=== PATIENT | female | born 1955 | race African-American/Black ===

== ENCOUNTER → 2016-03-24 | Outpatient (CLI) | payer BC ==
--- NOTE | 2016-03-24 18:22 | CT ---
EXAMINATION TYPE: CT urogram wo/w con DATE OF EXAM: 03/24/2016 5:40 PM COMPARISON: NONE HISTORY: Microscopic hematuria. Pelvic pain. CT DLP: mGycm Automated exposure control for dose reduction was used. Technique Multiple axial sections were obtained from the diaphragm to the floor of the pelvis with intravenous contrast. The IV contrast was Omnipaque 100 mL. There are additional noncontrast images of the abdome n. FINDINGS: Lung bases are clear. There is no pleural effusion. Liver spleen pancreas appear normal. Bile ducts a re not dilated. There are clips from cholecystectomy. There is no adrenal mass. There is a 3 mm calcification in the lower pole right kidney. There is no h ydronephrosis. There is normal contrast opacification of the kidneys. Ureters are not dilated. Bladde r distends smoothly. There is no sign of pelvic mass. There is no free fluid in the pelvis. I see no intestinal wall thickening. There are no dilated loops. Appendix is not seen. There is no si gn of appendicitis. The bony structures are intact. I see no bony destructive process. IMPRESSION: NONOBSTRUCTING SMALL RIGHT RENAL CALCULUS. NO EVIDENCE OF RENAL MASS OR OBSTRUCTION. OTHERWISE NEGATI VE CT SCAN OF THE ABDOMEN AND PELVIS.
== END | disposition home or self-care (01) ==
LOC: RADCTMAIN 16:36
PROVIDERS: ATTEND Urology
DX: N20.0 Calculus of kidney (principal)
CPT/HCPCS: 74178; 74400; Q9967

== ENCOUNTER → 2016-06-04 | Outpatient (CLI) | payer BC ==
--- NOTE | 2016-06-04 18:56 | XR ---
EXAMINATION TYPE: XR bone survey complete DATE OF EXAM: 06/04/2016 6:00 PM COMPARISON: NONE HISTORY: Monoclonal gammopathy. Anemia. Heart and mediastinum are within normal limits. Bony thorax appears intact. Calvarium is intact. I se e no compression fracture of the cervical thoracic and lumbar spine. There are spondylotic changes at C5-6 C6-7. The long bones are intact. There is no thoracic paraspinal mass. IMPRESSION: Ordinary degenerative changes in the cervical spine. No evidence of multiple myeloma.
== END ==
LOC: RADXRMAIN 17:22
PROVIDERS: ATTEND Internal Medicine Hematology & Oncology
DX: D47.2 Monoclonal gammopathy (principal); M47.812 Spondylosis without myelopathy or radiculopathy, cervical region
CPT/HCPCS: 77075

== ENCOUNTER → 2016-09-17 | Outpatient (CLI) | payer BC ==
--- NOTE | 2016-09-17 16:55 | US ---
EXAMINATION TYPE: US thyroid st tissue head/neck DATE OF EXAM: 09/17/2016 COMPARISON: 03/03/2016 CLINICAL HISTORY: 61-year-old female E04.1 MULTINODULAR GOITER. Thyroid nodules TECHNIQUE: Multiple sonographic images of the thyroid gland are obtained. FINDINGS: GLAND SIZE: Right Lobe: 4.5 x 1.3 x 1.5 cm Overall Parenchyma: homogenous Left Lobe: 3.8 x 1.0 x 1.6 cm Overall Parenchyma: homogeneous Isthmus Thickness: 0.2 cm NODULES RIGHT: # of nodules measured on right: 2 1. 0.9 X 0.4 x 0.6 cm colloid cyst at the lower pole. Prior size: 0.7 x 0.4 x 0.5 cm 2. 0.6 X 0.3 x 0.6 cm cyst at the lower pole. Prior size: no previous LEFT: # of nodules measured on left: 0 ISTHMUS: # of nodules measured in the isthmus: 0 Bilateral neck scanned, no evidence of lymphadenopathy. IMPRESSION: A couple subcentimeter colloid cysts on the right. One of these is new and one has enlarged from 7 mm now measuring 9 mm.
== END | disposition home or self-care (01) ==
LOC: RADUSWWP 15:44
PROVIDERS: ATTEND Family Medicine
DX: E04.2 Nontoxic multinodular goiter (principal)
CPT/HCPCS: 76536

== ENCOUNTER → 2017-03-15 | Outpatient (CLI) | payer BC ==
--- NOTE | 2017-03-17 07:08 | MM ---
Reason for exam: screening (asymptomatic). Last mammogram was performed 1 year ago. History: Patient is postmenopausal. Took estrogen for 25 years beginning at age 25. Physical Findings: A clinical breast exam by your physician is recommended on an annual basis and results should be correlated with mammographic findings. MG Screening Mammo w CAD Bilateral CC and MLO view(s) were taken. Prior study comparison: March 05, 2016, bilateral MG screening mammo w CAD. December 27, 2014, right breast MG 3d work up w/cad RT. The breast tissue is heterogeneously dense. This may lower the sensitivity of mammography. No significant changes when compared with prior studies. ASSESSMENT: Benign, BI-RAD 2 RECOMMENDATION: Routine screening mammogram of both breasts in 1 year.
== END | disposition home or self-care (01) ==
LOC: RADMAMWWP 15:37
PROVIDERS: ATTEND Obstetrics & Gynecology
DX: Z12.31 Encounter for screening mammogram for malignant neoplasm of breast (principal)
CPT/HCPCS: 77067

== ENCOUNTER → 2017-03-29 | Outpatient (CLI) | payer BC ==
--- NOTE | 2017-03-30 08:24 | CT ---
EXAMINATION TYPE: CT angio neck DATE OF EXAM: 03/29/2017 HISTORY: Carotid bruit. COMPARISON: Prior thyroid ultrasounds CT DLP: 245.40 mGycm. Automated Exposure Control for Dose Reduction was Utilized. TECHNIQUE: CTA scan of the neck is performed with IV Contrast, patient injected with 65 mL of Omnipa que 350, axial images are obtained, coronal and sagittal reformatted images are reviewed. Three-D rec onstructed images are created on an independent workstation and reviewed. FINDINGS: Carotid/Vascular Structures: A 4 mm focus of calcified plaque is seen within the right carotid bulb, no hemodynamically significant stenosis within the right common carotid artery, external carotid colin ry or internal carotid artery. Small amount of nonhemodynamically significant calcific plaque is also seen within the supraclinoid portion of the right internal carotid artery. There is no plaquing of the left common carotid artery, and external carotid artery, or internal jack tid artery within the neck. Small amount of nonhemodynamically significant plaquing is seen within th e supraclinoid portion of the left internal carotid artery. There is a normal anatomic branching pattern of the great vessels. The vertebral arteries are patent and codominant. Full [place] of [place] is not included on the images. Other: There are 2 hypoattenuating lesions within the right thyroid lobe the largest measuring 4 mm. This patient has a known thyroid goiter in prior ultrasound of 01/06/2017 demonstrating stable finding s from the prior of 09/17/2016. There is moderate mucosal thickening within the maxillary sinuses. Rem ainder the visualized paranasal sinuses and mastoid air cells are well aerated. Minimal emphysematous changes are seen within the lung apices. Osseous structures appear intact. Mild multilevel degenerat rome changes of the cervical spine are noted. IMPRESSION: 1. No evidence of hemodynamically significant stenosis within either carotid arterial system. Minimal nonhemodynamically significant stenosis is seen within the right carotid bulb and bilateral supracli noid portions of the internal carotid arteries. 2. Moderate maxillary paranasal sinus mucosal thickening.
== END | disposition home or self-care (01) ==
LOC: RADCTMAIN 16:59
PROVIDERS: ATTEND Thoracic Surgery (Cardiothoracic Vascular Surgery)
DX: I65.23 Occlusion and stenosis of bilateral carotid arteries (principal)
CPT/HCPCS: 70498; Q9967

== ENCOUNTER → 2017-04-01 | Outpatient (CLI) | payer BC ==
--- NOTE | 2017-04-02 10:43 | ECHOF ---
Referral Reason:I34.0 Nonrheumatic mitral (valve) insufficiency MEASUREMENTS -------- HEIGHT: 154.9 cm WEIGHT: 74.8 kg BP: RVIDd: 2.8 cm (< 3.3) IVSd: 1.2 cm (0.6 - 1.1) LVIDd: 3.8 cm (3.9 - 5.3) LVPWd: 1.5 cm (0.6 - 1.1) IVSs: 1.4 cm LVIDs: 2.8 cm LVPWs: 1.6 cm LAESV Index (A-L): 21.08 ml/m Ao Diam: 3.1 cm (2.0 - 3.7) AV Cusp: 1.6 cm (1.5 - 2.6) LA Diam: 2.9 cm (2.7 - 3.8) MV EXCURSION: 17.570 mm (> 18.000) MV EF SLOPE: 80 mm/s (70 - 150) EPSS: 0.3 cm MV E Wilmer: 0.64 m/s MV DecT: 188 ms MV A Wilmer: 0.71 m/s MV E/A Ratio: 0.90 AR PHT: 403 ms RAP: 5.00 mmHg RVSP: 32.70 mmHg FINDINGS -------- Sinus rhythm. This was a technically adequate study. The left ventricular size is normal. There is mild concentric left ventricular hypertrophy. Overa ll left ventricular systolic function is normal with, an EF between 55 - 60 %. The right ventricle is mildly enlarged. Normal LA size by volume 22+/-6 ml/m2. RA appears enlarged. Aortic valve is trileaflet and is mildly thickened. There is [id number] aortic regurgitation. There is no evidence of aortic stenosis. There is trace to mild mitral regurgitation. There is moderate calcification of the anterior mitral valve leaflet. Mild tricuspid regurgitation present. Right ventricular systolic pressure is normal at < 35 mmHg. There is no evidence of pulmonary hypertension. Moderate pulmonic regurgitation. The aortic root size is normal. Normal inferior vena cava with normal inspiratory collapse consistent with estimated right atrial pre ssure of 5 mmHg. The pericardium is normal. There is no pericardial effusion. CONCLUSIONS -------- 1. Sinus rhythm. 2. This was a technically adequate study. 3. The left ventricular size is normal. 4. There is mild concentric left ventricular hypertrophy. 5. Overall left ventricular systolic function is normal with, an EF between 55 - 60 %. 6. The right ventricle is mildly enlarged. 7. Normal LA size by volume 22+/-6 ml/m2. 8. RA appears enlarged. 9. Aortic valve is trileaflet and is mildly thickened. 10. There is [id number] aortic regurgitation. 11. There is trace to mild mitral regurgitation. 12. Mild tricuspid regurgitation present. 13. Right ventricular systolic pressure is normal at < 35 mmHg. 14. There is no evidence of pulmonary hypertension. 15. Moderate pulmonic regurgitation. 16. The aortic root size is normal. 17. There is no pericardial effusion. LOAN WORKOUT OFFICER: Oseas Winkler RDCS
== END | disposition home or self-care (01) ==
LOC: RADECHMAIN 16:32
PROVIDERS: ATTEND Family Medicine
DX: I08.2 Rheumatic disorders of both aortic and tricuspid valves (principal)
CPT/HCPCS: 93306

== ENCOUNTER → 2017-04-06 | Outpatient (CLI) | payer BC ==
--- NOTE | 2017-04-06 17:50 | CT ---
EXAMINATION TYPE: CT angio chest DATE OF EXAM: 04/06/2017 5:34 PM COMPARISON: NONE HISTORY: Carotid bruit CT DLP: 302.9 mGycm Automated exposure control for dose reduction was used. CONTRAST: CTA scan of the thorax is performed with IV Contrast, patient injected with 100ml mL of Omnipaque 350 , pulmonary embolism protocol. There are 3-D post processed images.. FINDINGS: There is a 1 cm calcified granuloma in the subpleural lateral right lung. There is no evidence of a p ulmonary mass. Lungs are clear of consolidation. There is no pericardial effusion. Thoracic aorta sabina ears normal. There is no evidence of aneurysm or dissection. I see no filling defects in the pulmonar y arteries. There is no mediastinal adenopathy. There are no hilar masses. Heart appears enlarged. Th ere is spurring in the thoracic spine. IMPRESSION: CARDIOMEGALY. NO EVIDENCE OF PULMONARY EMBOLISM.
== END | disposition home or self-care (01) ==
LOC: RADCTMAIN 16:58
PROVIDERS: ATTEND Thoracic Surgery (Cardiothoracic Vascular Surgery)
DX: I51.7 Cardiomegaly (principal)
CPT/HCPCS: 71275; Q9967

== ENCOUNTER → 2017-07-29 | Outpatient (CLI) | payer OTHER ==
--- NOTE | 2017-07-29 13:43 | CT ---
EXAMINATION TYPE: CT brain candy gonzalez DATE OF EXAM: 07/29/2017 COMPARISON: NONE HISTORY: Fall, neck pain and AGGARWAL CT DLP: [address] of the brain was performed. The ventricles, basal cisterns and sulci overlying the cerebral convexities demonstrate mild enlargem ent. There is no evidence for intracranial hemorrhage or sulcal effacement. There is decreased attenuatio n about the periventricular white matter and deep white matter of both cerebral hemispheres, compatib le with chronic small vessel ischemia. No mass effects are seen. If symptoms persist consider MRI. Osseous calvarium is intact. IMPRESSION: 1. Age related atrophic and chronic small vessel ischemic change without acute intracranial process seen at this time. CT Cervical Spine: Unenhanced CT of the cervical spine was performed with bone and soft tissue window settings submitted . Coronal and sagittal reconstruction is obtained. There is normal alignment and prevertebral soft tissues. No evidence for acute cervical fracture . Scattered degenerative disc disease and spondylosis. Biapical scarring. IMPRESSION: 1. No evidence for acute fracture or subluxation of the cervical spine.
== END | disposition home or self-care (01) ==
LOC: RADCTMAIN 13:02
PROVIDERS: ATTEND Emergency Medicine
DX: G31.1 Senile degeneration of brain, not elsewhere classified (principal); I67.82 Cerebral ischemia; M54.2 Cervicalgia
CPT/HCPCS: 70450; 72125

== ENCOUNTER → 2017-08-17 | Outpatient (CLI) | payer BC ==
--- NOTE | 2017-08-17 17:39 | US ---
EXAMINATION TYPE: US thyroid st tissue head/neck DATE OF EXAM: 08/17/2017 COMPARISON: 2017 CLINICAL HISTORY: E04.1 Nontoxic single thyroid nodule. GLAND SIZE: Right Lobe: 3.6 x 1.1 x 1.4 cm Overall Parenchyma: heterogenous Left Lobe: 3.5 x 0.9 x 1.4 cm Overall Parenchyma: homogeneous Isthmus Thickness: 0.2 cm NODULES RIGHT: # of nodules measured on right: 2 1. 0.6 X 0.6 x 0.4 cm cystic nodule at the lower pole with well-defined margins; present with micro calcifications. This nodule is wider than tall and shows no intranodular vascularity. Prior size: 0.8 x 0.6 x 0.4 cm 2. 0.5 X 0.4 x 0.2 cm micr calcifications cystic nodule at the lower pole with well-defined margins; . This nodule is wider than tall and shows no intranodular vascularity. Prior size: 0.5 x 0.4 x 0.3 cm LEFT: # of nodules measured on left: 0 ISTHMUS: # of nodules measured in the isthmus: 0 Bilateral neck scanned, no evidence of lymphadenopathy. IMPRESSION: Thyroid gland appears stable compared to 01/06/2017. No dominant thyroid mass.
== END | disposition home or self-care (01) ==
LOC: RADUSWWP 17:03
PROVIDERS: ATTEND Family Medicine
DX: E04.1 Nontoxic single thyroid nodule (principal)
CPT/HCPCS: 76536

== ENCOUNTER → 2018-04-08 | Outpatient (CLI) | payer BC ==
--- NOTE | 2018-04-11 11:55 | MM ---
Reason for exam: screening (asymptomatic). Last mammogram was performed 1 year and 1 month ago. History: Patient is postmenopausal. Took estrogen for 25 years beginning at age 25. Physical Findings: A clinical breast exam by your physician is recommended on an annual basis and results should be correlated with mammographic findings. MG Screening Mammo w CAD Bilateral CC and MLO view(s) were taken. Prior study comparison: March 15, 2017, bilateral MG screening mammo w CAD. March 05, 2016, bilateral MG screening mammo w CAD. The breast tissue is heterogeneously dense. This may lower the sensitivity of mammography. No suspicious abnormality. No significant changes when compared with prior studies. ASSESSMENT: Negative, BI-RAD 1 RECOMMENDATION: Routine screening mammogram of both breasts in 1 year.
== END ==
LOC: RADMAMWWP 16:38
PROVIDERS: ATTEND Obstetrics & Gynecology
DX: Z12.31 Encounter for screening mammogram for malignant neoplasm of breast (principal)
CPT/HCPCS: 77067

== ENCOUNTER → 2018-07-29 | Outpatient (CLI) | payer BC ==
--- NOTE | 2018-07-30 13:20 | US ---
EXAMINATION TYPE: US thyroid st tissue head/neck DATE OF EXAM: 07/29/2018 COMPARISON: US 2018 CLINICAL HISTORY: E04.2 nontoxic multinodular goiter. Follow up thyroid nodules GLAND SIZE: Right Lobe: 4.4 x 1.1 x 1.6 cm Overall Parenchyma: homogenous Left Lobe: 3.8 x 1.0 x 1.4 cm Overall Parenchyma: homogeneous Isthmus Thickness: 0.2 cm NODULES RIGHT: # of nodules measured on right: 2 1. 0.6 X 0.3 x 0.6 cm hypoechoic cystic nodule at the lower pole with well-defined margins. This no dule is wider than tall and shows no intranodular vascularity. Prior size: 0.6 x 0.6 x 0.4 cm 2. 0.7 X 0.4 x 0.7 cm hypoechoic cystic nodule at the lower pole with well-defined margins. This nod ule is wider than tall and shows no intranodular vascularity. Prior size: 0.5 x 0.4 x 0.2 cm LEFT: # of nodules measured on left: 0 ISTHMUS: # of nodules measured in the isthmus: 0 Bilateral neck scanned, no evidence of lymphadenopathy. IMPRESSION: Essentially stable exam. Subcentimeter thyroid nodules some of which may represent colloid cysts in t he right lobe.
--- NOTE | 2018-07-30 13:21 | US ---
EXAMINATION TYPE: US carotid duplex BILAT DATE OF EXAM: 07/29/2018 COMPARISON: US carotid 2016 CLINICAL HISTORY: R09.89 other specified symptoms and signs. Bruit EXAM MEASUREMENTS: RIGHT: Peak Systolic Velocity (PSV) cm/sec ----- Right CCA: 52.2 ----- Right ICA: 102.6 ----- Right ECA: 82.2 ICA/CCA ratio: 2.0 RIGHT: End Diastole cm/sec ----- Right CCA: 10.2 ----- Right ICA: 30.9 ----- Right ECA: 8.7 LEFT: Peak Systolic Velocity (PSV) cm/sec ----- Left CCA: 67.7 ----- Left ICA: 58.1 ----- Left ECA: 43.9 ICA/CCA ratio: 0.9 LEFT: End Diastole cm/sec ----- Left CCA: 17.1 ----- Left ICA: 18.1 ----- Left ECA: 5.8 VERTEBRALS (direction of flow): Right Vertebral: Antegrade Left Vertebral: Antegrade Rhythm: Normal Bilateral intimal thickening, no elevated velocities Grayscale, color Doppler, spectral Doppler imaging performed. Waveform analysis does not show signifi cant stenosis of the proximal internal carotid arteries. IMPRESSION: No hemodynamic significant stenosis of the proximal internal carotid arteries bilaterall y by Doppler criteria, an indirect measurement of carotid stenosis
== END | disposition home or self-care (01) ==
LOC: RADUSWWP 16:26
PROVIDERS: ATTEND Family Medicine
DX: E04.2 Nontoxic multinodular goiter (principal); R09.89 Other specified symptoms and signs involving the circulatory and respiratory systems
CPT/HCPCS: 76536; 93880

== ENCOUNTER → 2020-02-13 | Outpatient (CLI) | payer MEDICARE ==
--- NOTE | 2020-02-13 16:39 | BD ---
EXAMINATION TYPE: Axial Bone Density DATE OF EXAM: 02/13/2020 COMPARISON: NONE CLINICAL HISTORY: Height: 5 FT 1 1/2 IN Weight: 171 FRAX RISK QUESTIONS: Alcohol (3 or more units per day): NO Family History (Parent hip fracture): NO Glucocorticoids (More than 3mos): NO (Ex: prednisone, prednisolone, methylprednisolone, dexamethasone, and hydrocortisone). History of Fracture in Adulthood: YES Secondary Osteoporosis: 1. Type 1 Diabetes: NO 2. Hyperthyroidism: NO 3. Menopause before 45: YES 4. Malnutrition: NO 5. Chronic liver disease: NO Rheumatoid Arthritis: NO Current Tobacco Use: NO RISK FACTORS HISTORY OF: Family History of Osteoporosis: NO Active: YES Diet low in dairy products/other sources of calcium: NO Postmenopausal woman: TOTAL HYST AGE 34 Take estrogen and/or progesterone medications: TOOK FOR AWHILE NOT SURE WHEN OR HOW LONG Lost more than 2 inches in height since high school: NO MEDICATIONS: Additional Medications: LOSARTIN, TOPOROL ,VITAMINS, CALCIUM Additional History: EXAM MEASUREMENTS: Bone mineral densitometry was performed using the [employer]. Bone mineral density as measured about the Lumbar spine is: ----- L1-L4(G/cm2): 1.054 T Score Values are as follows: ----- L2: -2.1 ----- L3: -1.6 ----- L4: -0.3 ----- L1-L4: -1.1 Bone mineral density has: INCREASED 0.2 % since study of: 2017 Bone mineral density about the R hip (g/cm2): 0.942 Bone mineral density about the L hip (g/cm2): 0.930 T Score values are as follows: -----R Neck: -0.7 -----L Neck: -0.8 -----R Total: -0.3 -----L Total: 0.0 Bone mineral density has: DECREASED -5.7 % since study of: 2017 IMPRESSION: Osteopenia (T Score between -2.5 and -1). There is slightly increased risk of fracture and the patient may be considered for treatment. Re-Screen 2-5 years. NOTE: T-SCORE=SD OF THE YOUNG ADULT MEAN.
== END | disposition home or self-care (01) ==
LOC: RADBDWWP 09:24
PROVIDERS: ATTEND Obstetrics & Gynecology
DX: M85.80 Other specified disorders of bone density and structure, unspecified site (principal)
CPT/HCPCS: 77080

== ENCOUNTER → 2020-02-14 | Outpatient (CLI) | payer MEDICARE ==
--- NOTE | 2020-02-19 11:00 | MM ---
Reason for exam: screening (asymptomatic). Last mammogram was performed 1 year and 10 months ago. History: Patient is postmenopausal. Took estrogen for 25 years beginning at age 25. Physical Findings: A clinical breast exam by your physician is recommended on an annual basis and results should be correlated with mammographic findings. MG 3D Screening Mammo W/Cad Bilateral CC and MLO view(s) were taken. Prior study comparison: April 08, 2018, bilateral MG screening mammo w CAD. March 15, 2017, bilateral MG screening mammo w CAD. The breast tissue is heterogeneously dense. This may lower the sensitivity of mammography. No significant changes when compared with prior studies. ASSESSMENT: Benign, BI-RAD 2 RECOMMENDATION: Routine screening mammogram of both breasts in 1 year.
== END | disposition home or self-care (01) ==
LOC: RADMAMWWP 14:40
PROVIDERS: ATTEND Obstetrics & Gynecology
DX: Z12.31 Encounter for screening mammogram for malignant neoplasm of breast (principal)
CPT/HCPCS: 77063; 77067

== ENCOUNTER → 2020-02-14 | Outpatient (CLI) | payer MEDICARE ==
--- NOTE | 2020-02-14 15:35 | US ---
EXAMINATION TYPE: US thyroid st tissue head/neck DATE OF EXAM: 02/14/2020 COMPARISON: NONE CLINICAL HISTORY: E04.2 nontoxic multinodular goiter. follow up exam GLAND SIZE: Right Lobe: 4.4 x 1.3 x 1.4 cm Overall Parenchyma: homogenous Left Lobe: 3.7 x 1.5 x 1.1 cm Overall Parenchyma: homogeneous Isthmus Thickness: 0.2 cm NODULES RIGHT: # of nodules measured on right: 1 1. 0.6 X 0.3 x 0.4 cm cystic or almost completely cystic, anechoic nodule, which is wider than tall , with smooth margins, with echogenic foci. Prior size: 0.6 x 0.3 x 0.6 cm LEFT: # of nodules measured on left: 0 ISTHMUS: # of nodules measured in the isthmus: 0 Bilateral neck scanned, no evidence of lymphadenopathy. IMPRESSION: Benign 2017 ACR TI-RADS LEVEL: 1 *Highest TI-RADS level nodule reported
== END | disposition home or self-care (01) ==
LOC: RADUSWWP 14:36
PROVIDERS: ATTEND Family Medicine
DX: E04.2 Nontoxic multinodular goiter (principal)
CPT/HCPCS: 76536

== ENCOUNTER → 2020-08-14 | Outpatient (CLI) | payer MEDICARE ==
--- NOTE | 2020-08-15 22:32 | MR ---
EXAMINATION TYPE: MR lumbar spine wo con DATE OF EXAM: 08/14/2020 COMPARISON: None HISTORY: LBP, BLE radiculopathy x 1 year. CONTRAST: 0 mL intravenous Gadavist. TECHNIQUE: Multiplanar, multisequence images of the lumbar spine were acquired. FINDINGS: L5-S1: Broad-based disc bulge is present. No significant thecal sac compression is evident. No contac t with the exiting nerve roots is evident. Neural foramen are patent No spinal canal stenosis. No f oraminal stenosis. L4-L5: Symmetrical disc bulge is present with anterior thecal sac flattening. No focal disc herniatio n is evident. No spinal canal stenosis. Facet hypertrophy is present with mild posterior lateral the maritza compression. Ligamentum flavum laxity is present. Mild bilateral foraminal narrowing is present. L3-L4: Mild disc bulge has anterior thecal sac contact. Facet hypertrophy of ligamentum flavum laxity is posterior lateral thecal sac compression. No spinal canal stenosis or neural foraminal stenosis i s present L2-L3: No significant disc bulge or disc herniation. No spinal canal stenosis. No foraminal stenosi s. Mild facet hypertrophy is present. L1-L2: No significant disc bulge or disc herniation. No spinal canal stenosis. No foraminal stenosi s. T12-L1: No significant disc bulge or disc herniation. No spinal canal stenosis. No foraminal stenos is. IMPRESSION: 1. Facet hypertrophy. Some ligamentum flavum laxity is also present at L4-5 with some mild posterior lateral thecal sac compression. No stenosis is evident. Mild facet hypertrophy is present elsewhere w ithin the lower lumbar spine. 2. Disc bulging L3-4 through L5-S1 with mild thecal sac flattening or contact.
== END | disposition home or self-care (01) ==
LOC: RADMRIMAIN 16:35
PROVIDERS: ATTEND Family Medicine
DX: M51.17 Intervertebral disc disorders with radiculopathy, lumbosacral region (principal); M47.26 Other spondylosis with radiculopathy, lumbar region
CPT/HCPCS: 72148

== ENCOUNTER → 2021-05-20 | Outpatient (CLI) | payer MEDICARE ==
--- NOTE | 2021-05-21 13:46 | MM ---
Reason for exam: screening (asymptomatic). Last mammogram was performed 1 year and 3 months ago. History: Patient is postmenopausal. Family history of breast cancer in sister. Took estrogen for 25 years beginning at age 25. Physical Findings: A clinical breast exam by your physician is recommended on an annual basis and results should be correlated with mammographic findings. MG 3D Screening Mammo W/Cad Bilateral CC and MLO view(s) were taken. Prior study comparison: February 14, 2020, bilateral MG 3d screening mammo w/cad. April 08, 2018, bilateral MG screening mammo w CAD. The breast tissue is heterogeneously dense. This may lower the sensitivity of mammography. There is no discrete abnormality. No significant changes when compared with prior studies. ASSESSMENT: Negative, BI-RAD 1 RECOMMENDATION: Routine screening mammogram of both breasts in 1 year.
== END | disposition home or self-care (01) ==
LOC: RADMAMWWP 15:23
PROVIDERS: ATTEND Obstetrics & Gynecology
DX: Z12.31 Encounter for screening mammogram for malignant neoplasm of breast (principal); Z78.0 Asymptomatic menopausal state; Z80.3 Family history of malignant neoplasm of breast
CPT/HCPCS: 77063; 77067

== ENCOUNTER 2022-04-01 10:01 | Day surgery (SDC) | payer MEDICARE ==
[2022-03-31 10:19] VITALS: BMI 32.1
[2022-04-01] MEDS ORDERED: ONDANSETRON 4 MG/2 ML VIAL IVP PRN (10:54)
[2022-04-01] MEDS ORDERED: LIDOCAINE 1% (10MG/ML) FOR IV START INTRADERMA PRN (10:54)
[2022-04-01] MEDS ORDERED: LACTATED RINGERS 1,000 ML IV SCH ×2 (10:54)
[2022-04-01 11:14] VITALS: RESP 16; TEMP 97.1
[2022-04-01 11:28] LABS: Glucose,Whole Blood 103 mg/dL (70-110)
[2022-04-01] MEDS ORDERED: LIDOCAINE 2% INJ 20 MG/ML (2 ML VIAL) ONE (12:29)
[2022-04-01] MEDS ORDERED: PROPOFOL 10 MG/ML 20 ML VIAL IV ONE (12:29)
--- NOTE | 2022-04-01 12:42 | P.PCN ---
Date of Procedure: 04/01/22 Procedure(s) Performed: BRIEF HISTORY: Patient is a 66-year-old [place] -[place] female scheduled for an elective colonoscopy as a part of pain for colon cancer. Her last colonoscopy was 10 years ago and was normal. PROCEDURE PERFORMED: Colonoscopy. PREOPERATIVE DIAGNOSIS: Screening for colon cancer. IV sedation per Anesthesia. PROCEDURE: After informed consent was obtained, the patient, was brought into the endoscopy unit. IV sedation was administered by Anesthesia under continuous monitoring. Digital rectal examination was normal. Initially the Olympus CF-160 flexible video colonoscope was then inserted in the rectum, gradually advanced into the cecum without any difficulty. Careful examination was performed as the scope was gradually being withdrawn. Ileocecal valve and the appendiceal orifice were visualized and appeared normal. Prep was excellent. Mucosa of the cecum, ascending colon, transverse colon, descending colon, sigmoid colon, and rectum appeared normal. Retroflexion was performed in the rectum and no lesions were seen. The patient tolerated the procedure well. IMPRESSION: Normal-appearing colon from rectum to cecum with no evidence of colorectal neoplasia. RECOMMENDATIONS: Findings of this examination were discussed with the patient as well as her family. She was advised to have a repeat screening colonoscopy in 10 years..
[2022-04-01 13:02] VITALS: BP 146/80; PULSE 80
== END 2022-04-01 13:33 | disposition home or self-care (01) ==
LOC: ORWHC2ENDO 10:01
PROVIDERS: ATTEND Internal Medicine Gastroenterology
DX: Z12.11 Encounter for screening for malignant neoplasm of colon (principal); I10 Essential (primary) hypertension; E11.9 Type 2 diabetes mellitus without complications; Z88.2 Allergy status to sulfonamides; Z79.84 Long term (current) use of oral hypoglycemic drugs; Z79.899 Other long term (current) drug therapy
CPT/HCPCS: J2704; J2001; G0121; 45378

== ENCOUNTER → 2022-06-24 | Outpatient (CLI) | payer MEDICARE ==
--- NOTE | 2022-06-24 13:03 | MM ---
Reason for Exam: Screening (asymptomatic). Last mammogram was performed 1 year(s) and 1 month(s) ago. Patient History: Menarche at age 11. First Full-Term at age 22. Left ovary removed at age 24. Right ovary removed at age 24. Hysterectomy at age 24. Postmenopausal. Estrogen for 25 years from age 25 until age 54. Sister had breast cancer. Risk Values: Ju 5 year model risk: 3.3%. NCI Lifetime model risk: 10.4%. Prior Study Comparison: 04/08/2018 Bilateral Screening Mammogram, [facility]. 02/14/2020 Bilateral Screening Mammogram, [facility]. 05/20/2021 Bilateral Screening Mammogram, [facility]. Tissue Density: The breast tissue is heterogeneously dense. This may lower the sensitivity of mammography. Findings: Analyzed By CAD. There is no suspicious group of microcalcifications or new suspicious mass in either breast. Overall Assessment: Negative, BI-RAD 1 Management: Screening Mammogram of both breasts in 1 year. A clinical breast exam by your physician is recommended on an annual basis and results should be correlated with mammographic findings. Electronically signed and approved by: Magno Olson D.O.
--- NOTE | 2022-06-24 14:27 | BD ---
EXAMINATION TYPE: Axial Bone Density DATE OF EXAM: 06/24/2022 CLINICAL HISTORY: 67 years old Female. ICD-10 CODE: M85.88 DISORDER OF BONE Height: 5 ft 1 in Weight: 173 FRAX RISK QUESTIONS: Alcohol (3 or more units per day): no Family History (Parent hip fracture): no Glucocorticoids (More than 3mos): no (Ex: prednisone, prednisolone, methylprednisolone, dexamethasone, and hydrocortisone). History of Fracture in Adulthood: yes Secondary Osteoporosis: 1. Type 1 Diabetes: no 2. Hyperthyroidism: nodules 3. Menopause before 45: yes 4. Malnutrition: no 5. Chronic liver disease: no Rheumatoid Arthritis: no Current Tobacco Use: no RISK FACTORS HISTORY OF: Surgery to Spine/Hip(right/left)/Wrist (right/left): no Family History of Osteoporosis: no Active: yes Diet low in dairy products/other sources of calcium: no Postmenopausal woman: yes Take estrogen and/or progesterone medications: none now Lost more than 2 inches in height since high school: no Frequent falls: no Poor Health: good Hyperparathyroidism: no Adrenal Insufficiency: no MEDICATIONS: Additional Medications: metoprolol, losartan Additional History: EXAM MEASUREMENTS: Bone mineral densitometry was performed using the [employer] System. Bone mineral density as measured about the Lumbar spine is: ----- L1-L4(G/cm2): 1.051 T Score Values are as follows: ----- L1: -1.4 ----- L2: -1.5 ----- L3: -1.5 ----- L4: -0.4 ----- L1-L4: -1.1 Z Score Values are as follows: ----- L1: -0.9 ----- L2: -1.0 ----- L3: -1.0 ----- L4: 0.1 ----- L1-L4: -0.6 Bone mineral density has: decreased -0.3 % since study of: 2019 Bone mineral density about the R hip (g/cm2): 0.941 Bone mineral density about the L hip (g/cm2): 0.926 T Score values are as follows: -----R Neck: -0.7 -----L Neck: -0.8 -----R Total: -0.2 -----L Total: 0.1 Z Score values are as follows: -----R Neck: -0.3 -----L Neck: -0.4 -----R Total: -0.1 -----L Total: 0.2 Bone mineral density has: increased 1.0 % since study of: 2019 FRAX%s: The graph provided illustrates a 5.7 % chance for a major osteoporotic fx and a 0.4 % chance for the hips probability for fx in 10 years time. IMPRESSION: Normal (Values between +1 and -1 indicate normal bone mass). Consider repeating this study in 5 year s or sooner if there is some new clinical indication. NOTE: T-SCORE=SD OF THE YOUNG ADULT MEAN.
== END ==
LOC: RADMAMWWP 11:58
PROVIDERS: ATTEND Obstetrics & Gynecology
DX: Z12.31 Encounter for screening mammogram for malignant neoplasm of breast (principal); M85.88 Other specified disorders of bone density and structure, other site; Z78.0 Asymptomatic menopausal state; Z80.3 Family history of malignant neoplasm of breast
CPT/HCPCS: 77063; 77067; 77080

== ENCOUNTER → 2023-09-22 | Outpatient (CLI) | payer MEDICARE ==
--- NOTE | 2023-09-26 14:42 | MM ---
Reason for Exam: Screening (asymptomatic). Last mammogram was performed 1 year(s) and 3 month(s) ago. Patient History: Menarche at age 11. First Full-Term at age 22. Left ovary removed at age 24. Right ovary removed at age 24. Hysterectomy at age 24. Postmenopausal. Estrogen for 25 years from age 25 until age 54. Sister had breast cancer. Risk Values: Ju 5 year model risk: 2.8%. NCI Lifetime model risk: 8.0%. Prior Study Comparison: 02/14/2020 Bilateral Screening Mammogram, [facility]. 05/20/2021 Bilateral Screening Mammogram, [facility]. 06/24/2022 Bilateral MG 3D screening mammo w/cad, [facility]. Tissue Density: The breasts are heterogeneously dense, which may obscure small masses. Findings: Analyzed By CAD. The pattern is symmetrical. Pattern appears stable. No significant interval changes No suspicious groups of microcalcifications, spiculated or lobular masses, architectural distortion or other secondary signs of malignancy are mammographically apparent. Overall Assessment: Benign, BI-RAD 2 Management: Screening Mammogram of both breasts in 1 year. A negative mammogram report should not preclude additional follow up of suspicious palpable abnormalities. Patient should continue monthly self breast exam. A clinical breast exam by your physician is recommended on an annual basis and results should be correlated with mammographic findings. Note on Ju scores and lifetime risk: 1. A Ju score greater than 3% is considered moderate risk. If this is the case, consider specialist referral to assess eligibility for a risk reducing agent. 2. If overall lifetime risk for the development of breast cancer is 20% or higher, the patient may qualify for future screening with alternating mammogram and breast MRI. Electronically signed and approved by: Constantino Campbell D.O. Radiologis
== END | disposition home or self-care (01) ==
LOC: RADMAMWWP 11:03
PROVIDERS: ATTEND Obstetrics & Gynecology
DX: Z12.31 Encounter for screening mammogram for malignant neoplasm of breast (principal); R92.333 Mammographic heterogeneous density, bilateral breasts; Z78.0 Asymptomatic menopausal state; Z80.3 Family history of malignant neoplasm of breast
CPT/HCPCS: 77063; 77067

== ENCOUNTER → 2024-03-09 | Outpatient (CLI) | payer MEDICARE ==
--- NOTE | 2024-03-09 10:15 | MR ---
EXAMINATION TYPE: MR lumbar spine wo con DATE OF EXAM: 03/09/2024 9:09 AM COMPARISON: 08/14/2020 CLINICAL INDICATION: Female, 68 years old with history of M54.16 Radiculopathy; lumbar region, Lower back pain, left side, LLE radiculopathy. TECHNIQUE: Multiplanar, multisequence images of the lumbar spine were acquired without IV contrast. FINDINGS: Vertebral body heights are preserved. There is hypertrophic facet arthropathy mid to lower lumbar spine with degenerative trace grade 1 ant erolisthesis L3-L4 and L4-L5. Remaining alignment is maintained. Mild degenerative disc disease mid to lower lumbar spine with desiccated and bulging discs. Anterior endplate spondylosis lower thoracic spine. Some scattered Modic type II fatty endplate changes presen t. There is some edematous Modic type I endplate change toward the left at L5-S1. Conus medullaris is normal. Scattered red marrow is present without suspicious bone marrow placement. Epidural lipomatosis at the L5-S1 level and below with secondary trefoil configuration to the thecal sac. Bulging disks impressing on the ventral thecal sac T10-T11, T11-T12, L3-L4, L4-L5, and L5-S1 without large focal disc herniation or significant spinal canal stenosis. On the right, changes result in mild neuroforaminal narrowing L3-S1 levels. On the left, changes result in mild neural foraminal narrowing L4-S1 levels. Disc material at L5-S1 closely approaches and may abut the bilateral traversing S1 nerve roots. Changes relatively similar compared to 08/14/2020. IMPRESSION: 1. Relatively similar exam. Hypertrophic facet arthropathy mid to lower lumbar spine with degenerativ e trace grade 1 anterolisthesis L3-L4 and L4-L5. 2. Mild degenerative disc disease mid to lower lumbar spine with desiccated and bulging discs. Disc m aterial at L5-S1 closely approaches and may abut the bilateral traversing S1 nerve roots. 3. Changes result in variable mild neuroforaminal narrowing L3-S1 levels. 4. Additional epidural lipomatosis opposite the L5-S1 level and below causing a trefoil configuration to the thecal sac. [facility], , 03/09/2024 10:12 AM
== END | disposition home or self-care (01) ==
LOC: RADMRIMAIN 08:28
PROVIDERS: ATTEND Family Medicine
DX: M48.061 Spinal stenosis, lumbar region without neurogenic claudication (principal); M51.16 Intervertebral disc disorders with radiculopathy, lumbar region; E88.2 Lipomatosis, not elsewhere classified; M47.27 Other spondylosis with radiculopathy, lumbosacral region; M43.16 Spondylolisthesis, lumbar region
CPT/HCPCS: 72148

== ENCOUNTER 2024-05-13 12:45 | Emergency (ER) | payer MEDICARE ==
[2024-05-13 12:50] VITALS: TEMP 97.9
--- NOTE | 2024-05-13 13:14 | ED ---
General Adult HPI - General Chief complaint: Nausea/Vomiting/Diarrhea Stated complaint: shaking Time Seen by Provider: 05/13/24 12:53 Source: patient, RN notes reviewed, old records reviewed Mode of arrival: ambulatory Limitations: no limitations - History of Present Illness Initial comments: 69-year-old female presenting with jerking movements which have been present for approximately 1 year. Patient had seen neurology with a separate complaint of l eft leg sciatica and is scheduled for nerve conduction studies. She states that she did not inform the neurologist of the jerking movements these are intermittent and not present at the time my evaluation. She denies prior history of neurologic disorder no history of chronic liver or renal disease. History of hypertension and diabetes. No headache. No chest pain. No difficulty breathing. No abdominal pain. She had 1 episode of nausea vomiting this morning but otherwise feels well now. No limb numbness or weakness. No gait instability. - Related Data Home Medications Medication Instructions Recorded Confirmed Losartan [Cozaar] 100 mg PO QAM 03/31/22 03/31/22 Metoprolol Tartrate [Lopressor] 25 mg PO QAM 03/31/22 03/31/22 metFORMIN HCL 500 mg PO QAM 03/31/22 03/31/22 Allergies Allergy/AdvReac Type Severity Reaction Status Date / Time Sulfa (Sulfonamide Allergy Rash/Hives Verified 05/13/24 12:50 Antibiotics) Review of Systems ROS Statement: Those systems with pertinent positive or pertinent negative responses have been documented in the HPI. ROS Other: All systems not noted in ROS Statement are negative. Past Medical History Past Medical History: Diabetes Mellitus, Hypertension Additional Past Medical History / Comment(s): pre diabetic History of Any Multi-Drug Resistant Organisms: None Reported Past Surgical History: Hysterectomy Past Anesthesia/Blood Transfusion Reactions: No Reported Reaction Past Psychological History: No Psychological Hx Reported Smoking Status: Never smoker Past Alcohol Use History: None Reported Past Drug Use History: None Reported General Exam Limitations: no limitations General appearance: alert, in no apparent distress Head exam: Present: atraumatic, normocephalic Eye exam: Present: normal appearance, PERRL ENT exam: Present: mucous membranes moist Respiratory exam: Present: normal lung sounds bilaterally. Absent: respiratory distress, wheezes Cardiovascular Exam: Present: regular rate, normal rhythm GI/Abdominal exam: Present: soft. Absent: distended, tenderness Extremities exam: Present: normal inspection, normal capillary refill Neurological exam: Present: alert, oriented X3, CN II-XII intact, other (Normal [id number] bilaterally, normal jiig-[id number], no focal numbness or weakness, strength is 5 out of 5 in all extremities). Absent: motor sensory deficit Psychiatric exam: Present: normal affect, normal mood Skin exam: Present: warm, dry, intact. Absent: cyanosis, diaphoretic Course Vital Signs 05/13/24 05/13/24 12:47 14:19 Temperature 97.9 F Pulse Rate 73 71 Respiratory 16 18 Rate Blood Pressure 184/83 191/85 O2 Sat by Pulse 99 98 Oximetry - Reevaluation(s) Reevaluation #1: 05/13/24 14:21 Pressure is elevated. Patient should take blood pressure medication when she returns to home. Medical Decision Making - Medical Decision Making Was pt. sent in by a medical professional or institution ([facility]OM[facility] Damon, SQL SERVER DBA DEVELOPER, urgent care, hospital, or senior living...) When possible be specific @ -No Did you speak to anyone other than the patient for history (EMS, parent, family, police, friend...)? What history was obtained from this source @ -No Did you review nursing and triage notes (agree or disagree)? Why? @ -I reviewed and agree with nursing and triage notes Were old charts reviewed (outside hosp., previous admission, EMS record, old EKG, old radiological studies, urgent care reports/EKG's, senior living records)? Report findings @ -No old charts were reviewed Differential Diagnosis: Parkinson's, essential tremor, infectious process, kidney disease, liver disease EKG interpreted by me (3pts min.). @Sinus rhythm rate of 74 MT interval 164, QRS duration 82, QTc [address] segment elevation. X-rays interpreted by me (1pt min.). @ -None done CT interpreted by me (1pt min.). @ -None done U/S interpreted by me (1pt. min.). @ -None done What testing was considered but not performed or refused? (CT, X-rays, U/S, labs)? Why? @ -None What meds were considered but not given or refused? Why? @ -None Did you discuss the management of the patient with other professionals (professionals i.e. , PA, SQL SERVER DBA DEVELOPER, lab, RT, psych nurse, social worker masters, space systems operations superintendent, teacher, contract officer, piano case and bench assembler)? Give summary @ -No Was smoking cessation discussed for >3mins.? @ -No Was critical care preformed (if so, how long)? @ -No Were there social determinants of health that impacted care today? How? (Homelessness, low income, unemployed, alcoholism, drug addiction, transportation, low edu. Level, literacy, decrease access to med. care, fci, r ehab)? @ -No Was there de-escalation of care discussed even if they declined (Discuss DNR or withdrawal of care, Hospice)? DNR status @ -No What co-morbidities impacted this encounter? (DM, HTN, Smoking, COPD, CAD, Cancer, CVA, ARF, Chemo, Hep., AIDS, mental health diagnosis, sleep apnea, morbid obesity)? @ -Hypertension and diabetes Was patient admitted / discharged? Hospital course, mention meds given and route, prescriptions, significant lab abnormalities, going to OR and other pertinent info. @ -69-year-old female presenting with a jerking movement which is intermittent and not present at the time my evaluation this has been ongoing for approximately 1 year. I did obtain EKG as well as CBC and CMP. She has a mild anemia otherwise normal labs. Patient does have follow-up with neurology and I do feel she would benefit from further evaluation with neurology. She should follow also with her primary care provider. Return parameters discussed. Undiagnosed new problem with uncertain prognosis? @ -No Drug Therapy requiring intensive monitoring for toxicity (Heparin, Nitro, Insu mike, Cardizem)? @ -No Were any procedures done? @ -No Diagnosis/symptom? @ -Intermittent jerking movement Acute, or Chronic, or Acute on Chronic? @ -[Chronic Uncomplicated (without systemic symptoms) or Complicated (systemic symptoms)? @ -Default Side effects of treatment? @ -No Exacerbation, Progression, or Severe Exacerbation? @ -No Poses a threat to life or bodily function? How? (Chest pain, USA, NC, pneumonia, PE, COPD, DKA, ARF, appy, cholecystitis, CVA, Diverticulitis, Homicidal, Veloz icidal, threat to staff... and all critical care pts) @Low risk at this time - Lab Data Result diagrams: 05/13/24 13:21 05/13/24 13:21 Lab Results 05/13/24 05/13/24 Range/Units 13:21 13:21 WBC 10.5 (3.8-10.6) k/uL RBC 4.16 (3.80-5.40) m/uL Hgb 11.1 L (11.4-16.0) gm/dL Hct 36.8 (34.0-46.0) % MCV 88.5 (80.0-100.0) fL MCH 26.7 (25.0-35.0) pg MCHC 30.1 L (31.0-37.0) g/dL RDW 13.4 (11.5-15.5) % Plt Count 245 (150-450) k/uL MPV 9.1 Neutrophils % 80 % Lymphocytes % 13 % Monocytes % 5 % Eosinophils % 1 % Basophils % 0 % Neutrophils # 8.4 H (1.3-7.7) k/uL Lymphocytes # 1.4 (1.0-4.8) k/uL Monocytes # 0.5 (0-1.0) k/uL Eosinophils # 0.1 (0-0.7) k/uL Basophils # 0.0 (0-0.2) k/uL Sodium 139 (137-145) mmol/L Potassium 4.1 (3.5-5.1) mmol/L Chloride 100 (98-107) mmol/L Carbon Dioxide 26 (22-30) mmol/L Anion Gap 13 mmol/L BUN 29 H (7-17) mg/dL Creatinine 1.05 H (0.52-1.04) mg/dL Est GFR (CKD-EPI)AfAm 62 (>60 ml/min/1.73 sqM) Est GFR (CKD-EPI)NonAf 54 (>60 ml/min/1.73 sqM) Glucose 113 H (74-99) mg/dL Calcium 9.9 (8.4-10.2) mg/dL Magnesium 1.8 (1.6-2.3) mg/dL Total Bilirubin 0.6 (0.2-1.3) mg/dL AST 30 (14-36) U/L ALT 18 (4-34) U/L Alkaline Phosphatase 90 (38-126) U/L Total Protein 9.0 H (6.3-8.2) g/dL Albumin 4.6 (3.5-5.0) g/dL Disposition Clinical Impression: Jerking movements of extremities Disposition: HOME SELF-CARE Condition: Fair Additional Instructions: Please monitor symptoms closely and inform your neurologist. Please drink plenty of fluids. Please return to the emergency department with any worsening or changing symptoms. Is patient prescribed a controlled substance at d/c from ED?: No Referrals: Constantino Banks DO [Primary Care Provider] - 1-2 days Time of Disposition: 14:03
[2024-05-13 13:42] LABS: Basophils % (A) 0 %; Eosinophils # (A) 0.1 k/uL (0-0.7); Eosinophils % (A) 1 %; HCT 36.8 % (34.0-46.0); HGB 11.1 gm/dL (11.4-16.0); Lymphocytes # (A) 1.4 k/uL (1.0-4.8); Lymphocytes % (A) 13 %; MCH 26.7 pg (25.0-35.0); MCHC 30.1 g/dL (31.0-37.0); MCV 88.5 fL (80.0-100.0); Mean Platelet Volume 9.1; Monocytes # (A) 0.5 k/uL (0-1.0); Monocytes % (A) 5 %; Neutrophils # (A) 8.4 k/uL (1.3-7.7); Neutrophils % (A) 80 %; Platelet Count 245 k/uL (150-450); RBC 4.16 m/uL (3.80-5.40); RDW 13.4 % (11.5-15.5); WBC 10.5 k/uL (3.8-10.6)
[2024-05-13 13:52] LABS: ALT 18 U/L (4-34); AST 30 U/L (14-36); African American GFR (CKD) 62 (>60 ml/min/1.73 sqM); Albumin 4.6 g/dL (3.5-5.0); Alkaline Phosphatase 90 U/L (38-126); Anion Gap 13 mmol/L; Blood Urea Nitrogen 29 mg/dL (7-17); Calcium 9.9 mg/dL (8.4-10.2); Carbon Dioxide 26 mmol/L (22-30); Chloride 100 mmol/L (98-107); Glucose 113 mg/dL (74-99); Magnesium 1.8 mg/dL (1.6-2.3); Non-African American GFR(CKD) 54 (>60 ml/min/1.73 sqM); Potassium 4.1 mmol/L (3.5-5.1); Sodium 139 mmol/L (137-145); Total Bilirubin 0.6 mg/dL (0.2-1.3)
[2024-05-13 14:20] VITALS: BP 191/85; PULSE 71; RESP 18
== END 2024-05-13 14:51 | disposition home or self-care (01) ==
LOC: EC 12:45
DX: R25.1 Tremor, unspecified (principal); D64.9 Anemia, unspecified; E11.9 Type 2 diabetes mellitus without complications; I10 Essential (primary) hypertension; Z79.84 Long term (current) use of oral hypoglycemic drugs; Z79.899 Other long term (current) drug therapy
CPT/HCPCS: 36415; 80053; 83735; 85025; 93005; 99284

== ENCOUNTER 2024-05-24 08:47 | Inpatient (IN) | payer MEDICARE ==
[2024-05-24] MEDS: LORazepam 2 MG/ML INJ IV STA (09:41)
[2024-05-24 09:59] LABS: Basophils % (A) 0 %; Eosinophils # (A) 0.1 k/uL (0-0.7); Eosinophils % (A) 1 %; HCT 34.1 % (34.0-46.0); HGB 10.3 gm/dL (11.4-16.0); Lymphocytes # (A) 1.4 k/uL (1.0-4.8); Lymphocytes % (A) 12 %; MCHC 30.3 g/dL (31.0-37.0); MCV 89.3 fL (80.0-100.0); Monocytes # (A) 0.5 k/uL (0-1.0); Monocytes % (A) 4 %; Neutrophils # (A) 9.7 k/uL (1.3-7.7); Neutrophils % (A) 81 %; Platelet Count 232 k/uL (150-450); RBC 3.81 m/uL (3.80-5.40); RDW 13.7 % (11.5-15.5); WBC 12.1 k/uL (3.8-10.6)
--- NOTE | 2024-05-24 10:13 | CT ---
EXAMINATION TYPE: CT brain wo con DATE OF EXAM: 05/24/2024 9:57 AM COMPARISON: 07/29/2017. CLINICAL INDICATION: Female, 69 years old with history of Seizure-like activity, tremors and Seizure- like activity TECHNIQUE: Brain: Axial CT images of the brain were obtained with coronal and sagittal reformats created and rev iewed. Contrast used: None. Oral contrast used: None. CT DLP: 1123.4 mGycm, Automated exposure control for dose reduction was used. FINDINGS: Brain: Extra-axial spaces: No abnormal extra-axial fluid collections. Ventricular system: Dilatation in proportion to cerebral atrophy. Cerebral parenchyma: Cerebral atrophy. No acute intraparenchymal hemorrhage or mass effect. The raymond -white junction is well differentiated. Scattered hypoattenuating areas are seen within the white mat ter. Cerebellum: Unremarkable. Mass effect: No evidence of midline shift. Intracranial vasculature: Atherosclerotic calcifications of the intracranial vessels. Soft tissues: Normal. Calvarium/osseous structures: No depressed skull fracture. Paranasal sinuses and mastoid air cells: Mild scattered paranasal sinus disease. Visualized orbits: Orbital contents are intact. IMPRESSION: 1. No acute intracranial process. 2. Nonspecific white matter changes, likely secondary to chronic small vessel ischemic disease. [facility], , 05/24/2024 10:11 AM
[2024-05-24 10:34] LABS: ALT 18 U/L (4-34); AST 30 U/L (14-36); African American GFR (CKD) >90 (>60 ml/min/1.73 sqM); Albumin 4.2 g/dL (3.5-5.0); Alkaline Phosphatase 83 U/L (38-126); Anion Gap 10 mmol/L; Blood Urea Nitrogen 19 mg/dL (7-17); Calcium 9.4 mg/dL (8.4-10.2); Carbon Dioxide 25 mmol/L (22-30); Chloride 105 mmol/L (98-107); Glucose 161 mg/dL (74-99); Magnesium 1.5 mg/dL (1.6-2.3); Non-African American GFR(CKD) 78 (>60 ml/min/1.73 sqM); Potassium 4.3 mmol/L (3.5-5.1); Sodium 140 mmol/L (137-145); Total Bilirubin 0.6 mg/dL (0.2-1.3); Total Protein 8.2 g/dL (6.3-8.2)
[2024-05-24] MEDS: MAGNESIUM SULFATE-D5W PMX 1 GM in DEXTROSE/WATER 1 100ML.BAG IVPB SCH (10:57)
[2024-05-24] MEDS ORDERED: NALOXONE 0.4 MG/ML 1 ML VIAL IV PRN (11:05)
[2024-05-24] MEDS ORDERED: ACETAMINOPHEN TAB 325 MG TAB PO PRN (11:05)
--- NOTE | 2024-05-24 11:15 | ED ---
General Adult HPI - General Chief complaint: Recheck/Abnormal Lab/Rx Stated complaint: tremors Time Seen by Provider: 05/24/24 09:07 Source: patient, RN notes reviewed, old records reviewed Mode of arrival: wheelchair Limitations: no limitations - History of Present Illness Initial comments: 69-year-old female presents for reevaluation of jerking. Patient was seen in the emergency department approximately 10 days ago with reported tremor and jerking. This was absent at the time my evaluation on this day. Today she presents with recurrent jerking movements which her whole body frequent movements which began about 8 hours prior to arrival and have been consistent. Patient denies previous seizure disorder. Denies headache. Denies fever. - Related Data Home Medications Medication Instructions Recorded Confirmed Losartan [Cozaar] 100 mg PO QAM 03/31/22 05/24/24 Allergies Allergy/AdvReac Type Severity Reaction Status Date / Time Sulfa (Sulfonamide Allergy Rash/Hives/Red Verified 05/24/24 11:32 Antibiotics) Skin Review of Systems ROS Statement: Those systems with pertinent positive or pertinent negative responses have been documented in the HPI. ROS Other: All systems not noted in ROS Statement are negative. Past Medical History Past Medical History: Diabetes Mellitus, Hypertension Additional Past Medical History / Comment(s): pre diabetic History of Any Multi-Drug Resistant Organisms: None Reported Past Surgical History: Hysterectomy Past Anesthesia/Blood Transfusion Reactions: No Reported Reaction Past Psychological History: No Psychological Hx Reported Smoking Status: Never smoker Past Alcohol Use History: None Reported Past Drug Use History: None Reported General Exam Limitations: no limitations General appearance: alert, in distress Head exam: Present: atraumatic, normocephalic Eye exam: Present: normal appearance, PERRL Neck exam: Present: normal inspection Respiratory exam: Present: normal lung sounds bilaterally. Absent: respiratory distress, wheezes Cardiovascular Exam: Present: regular rate, normal rhythm GI/Abdominal exam: Present: soft. Absent: distended, tenderness Extremities exam: Present: normal inspection, normal capillary refill Neurological exam: Present: alert, oriented X3, CN II-XII intact, other (Generalized jerking of the entire body, seizure-like activity). Absent: motor sensory deficit Psychiatric exam: Present: normal affect, normal mood Skin exam: Present: warm, dry, intact, normal color Course Vital Signs 03/19/25 03/19/25 09:00 10:59 Temperature 98.3 F Pulse Rate 70 85 Respiratory 18 16 Rate Blood Pressure 168/91 O2 Sat by Pulse 99 94 L Oximetry Medical Decision Making - Medical Decision Making Was pt. sent in by a medical professional or institution (NAOMY Damon, [employer], urgent care, hospital, or assisted...) When possible be specific @ -No Did you speak to anyone other than the patient for history (EMS, parent, family, police, friend...)? What history was obtained from this source @ -No Did you review nursing and triage notes (agree or disagree)? Why? @ -I reviewed and agree with nursing and triage notes Were old charts reviewed (outside hosp., previous admission, EMS record, old EKG, old radiological studies, urgent care reports/EKG's, assisted records)? Report findings @ -No old charts were reviewed Differential Seizure: Recurrent seizure disorder, febrile seizure, alcohol withdrawal, stimulants, meningitis, encephalitis, intercranial hemorrhage, intracranial tumor, stroke, eclampsia, thyrotoxicosis, hypocalcemia, hyponatremia, hypernatremia, hypomagnesemia, psychogenic, this is not meant to be an all-inclusive list. EKG interpreted by me (3pts min.). @ -Sinus rhythm rate of 84, tremor artifact limiting assessment, W[place] interval 158, QRS duration 88, QTc 403 X-rays interpreted by me (1pt min.). @ -None done CT interpreted by me (1pt min.). @CT brain negative for intracranial hemorrhage or mass effect U/S interpreted by me (1pt. min.). @ -None done What testing was considered but not performed or refused? (CT, X-rays, U/S, labs)? Why? @ -None What meds were considered but not given or refused? Why? @ -None Did you discuss the management of the patient with other professionals (professionals i.e. NAOMY Damon, [employer]TRYMAN, lab, RT, psych nurse, social work lecturer, photo colorer, teacher, space officer, ed case manager)? Give summary @ -Dr. Rayo Was smoking cessation discussed for >3mins.? @ -No Was critical care preformed (if so, how long)? @ -No Were there social determinants of health that impacted care today? How? (Home lessness, low income, unemployed, alcoholism, drug addiction, transportation, low edu. Level, literacy, decrease access to med. care, detention, rehab)? @ -No Was there de-escalation of care discussed even if they declined (Discuss DNR or withdrawal of care, Hospice)? DNR status @ -No What co-morbidities impacted this encounter? (DM, HTN, Smoking, COPD, CAD, Cancer, CVA, ARF, Chemo, Hep., AIDS, mental health diagnosis, sleep apnea, morbid obesity)? @Hypertension diabetes Was patient admitted / discharged? Hospital course, mention meds given and route, prescriptions, significant lab abnormalities, going to OR and other pertinent info. @ -[69-year-old female presenting with generalized jerking, appears seizure- like although the patient is awake and alert. Patient is in sinus rhythm. She has normal CBC, normal CMP. I did perform head CT which was negative for acute process. Patient given 1 mg of Ativan which does improve the jerking movements. She will be monitored with consult to neurology and EEG ordered. Case discussed with Dr. Rayo. Undiagnosed new problem with uncertain prognosis? @ -No Drug Therapy requiring intensive monitoring for toxicity (Heparin, Nitro, Insulin, Cardizem)? @ -No Were any procedures done? @ -No Diagnosis/symptom? @ -New onset seizure Acute, or Chronic, or Acute on Chronic? @ -Acute Uncomplicated (without systemic symptoms) or Complicated (systemic symptoms)? @ -Default Side effects of treatment? @ -No Exacerbation, Progression, or Severe Exacerbation? @ -No Poses a threat to life or bodily function? How? (Chest pain, [place], [place], pneumonia, PE, COPD, DKA, ARF, appy, cholecystitis, CVA, Diverticulitis, Homicidal, Suicidal, threat to staff... and all critical care pts) @ -Yes, status epilepticus - Lab Data Result diagrams: 05/24/24 09:43 05/24/24 09:43 Lab Results 05/24/24 05/24/24 05/24/24 Range/Units 09:43 09:43 09:43 WBC 12.1 H (3.8-10.6) k/uL RBC 3.81 (3.80-5.40) m/uL Hgb 10.3 L (11.4-16.0) gm/dL Hct 34.1 (34.0-46.0) % MCV 89.3 (80.0-100.0) fL MCH 27.0 (25.0-35.0) pg MCHC 30.3 L (31.0-37.0) g/dL RDW 13.7 (11.5-15.5) % Plt Count 232 (150-450) k/uL MPV 9.0 Neutrophils % 81 % Lymphocytes % 12 % Monocytes % 4 % Eosinophils % 1 % Basophils % 0 % Neutrophils # 9.7 H (1.3-7.7) k/uL Lymphocytes # 1.4 (1.0-4.8) k/uL Monocytes # 0.5 (0-1.0) k/uL Eosinophils # 0.1 (0-0.7) k/uL Basophils # 0.0 (0-0.2) k/uL Sodium 140 (137-145) mmol/L Potassium 4.3 (3.5-5.1) mmol/L Chloride 105 (98-107) mmol/L Carbon Dioxide 25 (22-30) mmol/L Anion Gap 10 mmol/L BUN 19 H (7-17) mg/dL Creatinine 0.77 (0.52-1.04) mg/dL Est GFR (CKD-EPI)AfAm >90 (>60 ml/min/1.73 sqM) Est GFR (CKD-EPI)NonAf 78 (>60 ml/min/1.73 sqM) Glucose 161 H (74-99) mg/dL Plasma Lactic Acid Gordon 1.7 (0.7-2.0) mmol/L Calcium 9.4 (8.4-10.2) mg/dL Magnesium 1.5 L (1.6-2.3) mg/dL Total Bilirubin 0.6 (0.2-1.3) mg/dL AST 30 (14-36) U/L ALT 18 (4-34) U/L Alkaline Phosphatase 83 (38-126) U/L Total Protein 8.2 (6.3-8.2) g/dL Albumin 4.2 (3.5-5.0) g/dL Disposition Clinical Impression: New onset seizure, Jerking movements of extremities Disposition: ADMITTED IP TO THIS [facility] Condition: Stable Is patient prescribed a controlled substance at d/c from ED?: No Time of Disposition: 11:14
[2024-05-24] MEDS: LORazepam 2 MG/ML INJ IV PRN (12:20)
[2024-05-24] MEDS ORDERED: MELATONIN 3 MG TABLET PO PRN (13:23)
[2024-05-24] MEDS ORDERED: CALCIUM CARBONATE 500 MG CHEWABLE PO PRN (13:23)
[2024-05-24] MEDS ORDERED: DEXTROSE 50% SYRINGE 50 ML IVP PRN ×2 (13:26)
[2024-05-24 13:55] LABS: Glucose,Whole Blood 130 mg/dL (70-110)
[2024-05-24] MEDS: INSULIN LISPRO (HumaLOG) 100 UNIT/ML 10 mL VL SQ SCH (13:57)
[2024-05-24] MEDS: levETIRAcetam IV 500 MG/5 ML VIAL IVP SCH (14:04)
[2024-05-24] MEDS: SODIUM CHLORIDE 0.9% 1,000 ML IV SCH (14:09)
[2024-05-24] MEDS: ENOXAPARIN 40 MG/0.4 ML SYRINGE SQ SCH (14:09)
[2024-05-24] MEDS: METOPROLOL SUCCINATE (ER) 25 MG TAB.ER.24H PO SCH (14:14)
--- NOTE | 2024-05-24 16:16 | P.CNNES ---
History of Present Illness Consult date: 05/24/24 Requesting physician: Beck Pablo Reason for Consult: New onset seizure History of Present Illness: Patient is a 69-year-old right-handed female who has presented with myoclonic jerks. Neurology consulted to rule out seizures. Patient's son and patient's sister were also present by the bedside and they provided with a history. Patient mentions that the first time this episode happened was 4 months ago when it happened at night while she was asleep. She woke up, and she was jerking/twitching. This episode lasted for about couple hours and went away. She had a similar episode on 05/13/2024, for which she was brought to the hospital and the symptoms had resolved by the time she came to ER. She was recommended to follow-up with her neurologist Dr. Robins. She had the most intense third spell last night, that started, and has not let up yet. She went to bed, and woke up at 3 AM with twitching, jerking. She made it to the bathroom, came back and these jerks continued. These involve the facial region, upper and lower extremities, arrhythmic, not synchronous. She could not hold the phone, could not drink from a cup because of these jerks. Patient denies headache. She felt slightly nauseous and wanted to vomit. Patient denies any fever, chest pain, shortness of breath. She had only some nausea with shakiness. Patient's [id number]-nq-rdj, mentioned that patient has been feeling cold for 3 days. However yesterday she was doing better. [facility], and has been scheduled for an EMG on 06/22/2024. Patient's neurologist has not seen her for these tremors/jerking. Vital signs on arrival blood pressure 168/91, repeated 181/86, pulse rate 70, temperature 98.3. Blood test shows elevated WBC 12.1, hemoglobin 10.3, platelet s normal 232. CMP is normal. CT head revealed no acute intracranial process. Nonspecific white matter changes, likely secondary to chronic small vessel ischemic disease. I personally reviewed CT head, agree with the findings. There is evidence of old linear encephalomalacia involving the right anterior limb of internal capsule. There is subacute hypodensity in the right anterior thalamic region, which appears somewhat artifactual. EKG showed sinus rhythm. Patient had an MRI of the lumbar spine without contrast on 03/09/2024, which revealed hypertrophic facet arthropathy mid to lower lumbar spine with degenerative trace grade anterolisthesis 1 L3-L4 and L4-L5. Mild degenerative disc disease mid to lower lumbar spine with desiccated and bulging disks. Disc material at L5-S1 closely approaches and may abut the bilateral traversing S1 nerve roots. Changes result in variable mild neuroforaminal narrowing L3-S1 levels. Additional epidural lipomatosis opposite the L5-S1 level and below causing a trefoil configuration of the thecal sac. I personally reviewed MRI of the lumbar spine, and does not appear to have significant issues. No spinal stenosis. Patient had a normal carotid Doppler on 07/29/2018. Home medications include Patient has history of hypertension, prediabetes, non-smoker. Patient denies any use of marijuana. No alcohol use. Does not take opiates. Cozaar, multivitamin, metoprolol and vitamin D. Patient does not take antiplatelet medication at home. Review of Systems All pertinent positive and negative review of systems mentioned in the HPI, otherwise unremarkable. Past Medical History Past Medical History: Diabetes Mellitus, Hypertension Additional Past Medical History / Comment(s): pre diabetic History of Any Multi-Drug Resistant Organisms: None Reported Past Surgical History: Hysterectomy Past Anesthesia/Blood Transfusion Reactions: No Reported Reaction Past Psychological History: No Psychological Hx Reported Smoking Status: Never smoker Past Alcohol Use History: None Reported Past Drug Use History: None Reported Medications and Allergies Home Medications Medication Instructions Recorded Confirmed Type Cholecalciferol (Vitamin D3) 50 mcg PO DAILY 05/24/24 05/24/24 History [Vitamin D3 (50 Mcg = 2000 Iu) Chew Tab] Losartan Potassium [Cozaar] 100 mg PO DAILY 05/24/24 05/24/24 History Metoprolol Succinate (ER) [Toprol 25 mg PO DAILY 05/24/24 05/24/24 History Xl] Multivitamins, Thera [Multivitamin 1 tab PO DAILY 05/24/24 05/24/24 History (formulary)] Allergies Allergy/AdvReac Type Severity Reaction Status Date / Time Sulfa (Sulfonamide Allergy Rash/Hives/Red Verified 05/24/24 11:32 Antibiotics) Skin Physical Examination - Vital Signs Vital Signs: Vital Signs Temp Pulse Resp BP Pulse Ox 05/24/24 12:13 86 16 181/86 93 L 05/24/24 10:59 85 16 168/91 94 L 05/24/24 09:00 98.3 F 70 18 99 Intake and Output 05/23/24 05/24/24 05/24/24 22:59 06:59 14:59 Other: Weight 78.471 kg Patient is an elderly Afro-[place] female, appears somewhat slightly worried look, but in no acute distress. Patient is alert awake oriented to time place and person. She knows it is May 2024, and that she is in [facility] in [facility]. Speech and language functions are normal. Patient can name and repeat very well. No aphasia or dysarthria. She sometimes stutters. Attention, concentration and fund of knowledge is adequate. On cranial nerve examination, pupils are equal, round and reacting to light, visual ojeda are full on confrontation, with no neglect on double simultaneous stimulation. Extraocular muscles are intact with no nystagmus. Face is symmetric, tongue protrudes to the midline. Palatal elevation and sensation normal, hearing and shoulder shrug normal, facial sensation normal. On muscle strength testing, there is no pronator drift and the strength is norm al in arms and legs distally and proximally, except for hip flexion which is 4- bilaterally. Ankle dorsiflexion are normal. Deep tendon reflexes are symmetric 1+ to 2+ and plantars downgoing. Sensory to touch is equal with no neglect on double simultaneous stimulation. Cerebellar function showed no ataxia for hwjiqf-xm-rlaz testing. No dysdiadochokinesia. No ataxia for navu-pt-xume testing on either side. Tone and bulk of muscles normal. Patient has prominent myoclonic jerks of outstretch ed hands. She also has myoclonic jerks involving the legs, as well as facial region. They are arrhythmic, asynchronous, does not involve either side at the same time. Gait deferred.. On general examination, there is no carotid bruit or murmur, S1-S2 audible. Chest is clear on consultation. Abdomen is soft nontender. No organomegaly, bowel sounds present. Peripheral pulses are present. No peripheral edema. Results - Laboratory Findings CBC and BMP: 05/24/24 09:43 05/24/24 09:43 Abnormal Lab Findings: Abnormal Labs 05/24/24 05/24/24 09:43 09:43 WBC 12.1 H Hgb 10.3 L MCHC 30.3 L Neutrophils # 9.7 H BUN 19 H Glucose 161 H Magnesium 1.5 L Assessment and Plan Assessment: * Myoclonic jerks, unclear cause. Patient had recent transient episodes of myoclonic jerks 4 months ago and then 10 days ago, each of them lasted for couple hours and then resolved. However the current episode of these myoclonic jerks started mock up builder today at 3 AM on waking up, and are persistent till now. These are arrhythmic, nonsynchronous, involves facial region, as well as upper and lower extremities, and does not appear seizures. Exact cause of this myoclonus is uncertain. These appears metabolic in nature, however no obvious metabolic cause identified yet. Patient does not take pain medication/opiates. Patient's examination is nonfocal. * Leukocytosis, rule out UTI. * Hypertension, uncontrolled. Uncertain if some component of hypertensive encephalopathy. * Diabetes * Chronic back pain * Anemia Plan: * Patient will undergo metabolic workup including B12, folate, TSH, ammonia, hemoglobin A1c. * We will check UA with reflex to culture, as her white cells are elevated 12.1. Also check UDS. * EEG was performed today, which was normal awake and drowsy EEG. No focal, lateralized or epileptiform activity was seen. Myoclonic jerks were occurring during the study, which were only associated with muscle artifact, predominantly in the temporal region. No epileptiform activity was seen. No electrographic seizure was seen. * Patient received Ativan 1 mg during the EEG, and these myoclonic jerks did improve only for 10 to 15 minutes and then reappeared. * Patient is significantly stressed because of this myoclonic jerks. We will empirically start Keppra 750 mg IV twice daily, starting from now. * Patient will also undergo MRI of the brain with and without contrast. Discussed with primary physician in detail. * Neurology will follow. Thank you for the consult.
[2024-05-24 17:59] LABS: Glucose,Whole Blood 119 mg/dL (70-110)
--- NOTE | 2024-05-24 18:17 | P.HPIM ---
History of Present Illness H&P Date: 05/24/24 Chief Complaint: Tremor, jerks Pleasant 69-year-old patient who follows with Dr. Banks. Chronic medical conditions include diet-controlled diabetes, essential hypertension. Patient does live with her son. Who is present at the bedside. His girlfriend is also present. Patient for 2 months has been episodes where her body starts shaking. Sometimes 1 side more than the other. He does include her legs or arms, head. He seems to be more prominent when patient lying down. Specially at night. These episodes are better when she is actually ambulating. Patient is able to get and walk around normally otherwise. Recently the symptoms have been getting worse. No prior history of seizures. No prior history of head injury. Denies use of any recreational drugs. No infective symptoms. Review of systems: GEN.: A bit tired EYES: None HEENT: None NECK: None RESPIRATORY: None CARDIOVASCULAR: None GASTROINTESTINAL: None GENITOURINARY: None MUSCULOSKELETAL: None LYMPHATICS: None HEMATOLOGICAL: None PSYCHIATRY: None NEUROLOGICAL: As above Social history: Does not smoke or drink alcohol. Son lives with her. Physical examination: VITAL SIGNS: 98.3, 70, 18, 116.91, 94% room air GENERAL: BMI 32.7, laying in bed, some jerking of the limbs. EYES: Pupils equal. Conjunctiva arjun l. HEENT: External appearance of nose and ears normal, oral cavity grossly normal. NECK: JVD not raised; masses not palpable. HEART: First and second heart sounds are normal; no edema. LUNGS: Respiratory rate normal; clear to auscultation. ABDOMEN: Soft, nontender, liver spleen not palpable, no masses palpable. PSYCH: Alert and oriented x3; mood and affect a bit anxious l. MUSCULOSKELETAL:No Clubbing/cyanosis;muscles-grossly intact NEUROLOGICAL: Cranial nerves grossly intact; no facial asymmetry, power and sensation grossly intact. Patient noted to have some jerking movements. More in the left arm compared to the right. Sometimes after head and neck. LYMPHATICS: No lymph nodes palpable in the axilla and neck INVESTIGATIONS, reviewed in the clinical context: May 24, 2024: White count 12.1 hemoglobin 10.3 platelets 232 sodium 140 potassium 4.3 BUN 19 creatinine 0.77 lactic acid 1.7 magnesium 1.5 AST 30 ALT 18 TSH 1.2 EKG tracing personally reviewed by me-myrna davenport. Normal sinus rhythm. Possible LVH. CT scan brain without contrast: Ventricle dilatation proportion to cerebral atrophy. Scattered hypoattenuating areas seen within the white matter. Assessment plan: -Patient presents about 2 months duration of progressively worsening symptoms. Includes jerking of the limbs. Asymmetrical. Acne involves the whole body. Seems to be worse at night and when patient is at rest. Actually gets better when patient is ambulating. Denies any head injury. No recreational drugs. No infective symptoms. Differential includes something at the brainstem level/deep brain matter defect movement disorder. Also could be exacerbated form of restless leg syndrome. Seizure activity also needs to be ruled out. Neurology consulted. EEG. MRI of the brain with and without contrast. -Diet controlled diabetes mellitus type 2 Diabetic diet. Follow Accu-Cheks with sliding scale -Essential hypertension Cozaar. Toprol-XL. Care was discussed with the patient and son at the bedside. Neurology did at [facility]. Will follow Past Medical History Past Medical History: Diabetes Mellitus, Hypertension Additional Past Medical History / Comment(s): pre diabetic History of Any Multi-Drug Resistant Organisms: None Reported Past Surgical History: Hysterectomy Past Anesthesia/Blood Transfusion Reactions: No Reported Reaction Past Psychological History: No Psychological Hx Reported Smoking Status: Never smoker Past Alcohol Use History: None Reported Past Drug Use History: None Reported Medications and Allergies Home Medications Medication Instructions Recorded Confirmed Type Cholecalciferol (Vitamin D3) 50 mcg PO DAILY 05/24/24 05/24/24 History [Vitamin D3 (50 Mcg = 2000 Iu) Chew Tab] Losartan Potassium [Cozaar] 100 mg PO DAILY 05/24/24 05/24/24 History Metoprolol Succinate (ER) [Toprol 25 mg PO DAILY 05/24/24 05/24/24 History Xl] Multivitamins, Thera [Multivitamin 1 tab PO DAILY 05/24/24 05/24/24 History (formulary)] Allergies Allergy/AdvReac Type Severity Reaction Status Date / Time Sulfa (Sulfonamide Allergy Rash/Hives/Red Verified 05/24/24 11:32 Antibiotics) Skin Physical Exam Vitals: Vital Signs Temp Pulse Resp BP Pulse Ox 05/24/24 14:16 81 16 171/96 95 05/24/24 12:13 86 16 181/86 93 L 05/24/24 10:59 85 16 168/91 94 L 05/24/24 09:00 98.3 F 70 18 99 Intake and Output 05/24/24 05/24/24 05/24/24 06:59 14:59 22:59 Other: Weight 78.471 kg Results CBC & Chem 7: 05/24/24 09:43 05/24/24 09:43 Labs: Abnormal Lab Results - Last 24 Hours (Table) 05/24/24 05/24/24 05/24/24 Range/Units 09:43 09:43 09:43 WBC 12.1 H (3.8-10.6) k/uL Hgb 10.3 L (11.4-16.0) gm/dL MCHC 30.3 L (31.0-37.0) g/dL Neutrophils # 9.7 H (1.3-7.7) k/uL BUN 19 H (7-17) mg/dL Glucose 161 H (74-99) mg/dL POC Glucose (mg/dL) (70-110) mg/dL Hemoglobin A1c 6.4 H (<=6.0) % Magnesium 1.5 L (1.6-2.3) mg/dL 05/24/24 Range/Units 13:52 WBC (3.8-10.6) k/uL Hgb (11.4-16.0) gm/dL MCHC (31.0-37.0) g/dL Neutrophils # (1.3-7.7) k/uL BUN (7-17) mg/dL Glucose (74-99) mg/dL POC Glucose (mg/dL) 130 H (70-110) mg/dL Hemoglobin A1c (<=6.0) % Magnesium (1.6-2.3) mg/dL
[2024-05-24] MEDS: ONDANSETRON 4 MG/2 ML VIAL IVP PRN (19:37)
[2024-05-24] MEDS: LOSARTAN 50 MG TAB PO SCH (21:56)
--- NOTE | 2024-05-24 23:26 | EEG ---
ELECTROENCEPHALOGRAM REPORT PREAMBLE: This is a 69-year-old female with new onset seizure-like activity. The patient has some involuntary jerking movements. CURRENT MEDICATIONS: 1. Magnesium. 2. The patient was given Ativan 2 hours before EEG and as well as during the EEG. EEG FINDINGS: This is a 21-channel digital EEG recorded with video component, utilizing 10/20 international system with referential and bipolar montages. Background consists of fairly well developed and regulated, mixed frequencies of 10 hertz alpha intermixed with some fast frequency beta activity. Background seems to be reactive to eye opening and closing. Frequent myoclonic jerks were noted on the video section, during which only muscle artifact was seen predominantly in the bitemporal region. Different stages of sleep were not clearly seen. No focal or generalized epileptiform activity was seen. IMPRESSION: This is probably a normal awake EEG. No focal, lateralized, or epileptiform activity was seen. The patient was having frequent myoclonic jerks of her facial region or extremities, which was only associated with myogenic artifact predominantly in the temporal region. No electrographic seizure was recorded. After receiving Ativan 1 mg, the myogenic activity did improve for a short time. MMODL / IJN: [id number] /
[2024-05-25 08:22] LABS: Glucose,Whole Blood 99 mg/dL (70-110)
[2024-05-25] MEDS: CHOLECALCIFEROL 25 MCG (1000 IU) TABLET PO SCH (10:37)
[2024-05-25] MEDS: MULTIVITAMINS, THERA 1 EACH TAB PO SCH (10:37)
--- NOTE | 2024-05-25 11:03 | MR ---
EXAMINATION TYPE: MR brain wo/w con DATE OF EXAM: 05/25/2024 10:30 AM COMPARISON: 05/24/2024. CLINICAL INDICATION: Female, 69 years old with history of bilat jerky movents; PHH, Bilateral jerky m ovements, New Onset Seizures, TECHNIQUE: Multi planar, multi sequence imaging was performed through the brain including: T1, T2, In version recovery, susceptibility weighted imaging and gradient echo imaging and Diffusion weighted im aging. The patient was then given intravenous contrast and multi planar, T1 fat-saturation images wer e obtained. IV Contrast: 8 mL Gadobutrol FINDINGS: The raymond-white junctions, ventricular system, basal cisterns appear unremarkable. Diffusion-weighted imaging shows no evidence of restricted diffusion to suggest acute/subacute infarct. Intracranial ar terial flow voids are maintained. Midline structures show no abnormality. Scattered foci of high T2 s ignal intensity are seen within the periventricular white matter. The susceptibility weighted images do not reveal any evidence for micro-hemorrhage. After administration of gadolinium, no abnormal enha ncement is seen. Hemosiderin deposition within the right basal ganglia Hemosiderin deposition left splenium of the corpus callosum. The bone marrow signal is within normal limits. Paranasal sinuses and mastoid air cells: Mild scattered paranasal sinus disease. Visualized orbits: Orbital contents are intact. IMPRESSION: 1. No evidence of intracranial mass, acute/subacute infarct, or abnormal enhancement. 2. Nonspecific white matter changes, likely related to small vessel ischemic disease. 3. Hemosiderin deposition right basal ganglia and left splenium of the corpus callosum, likely sequel a prior hemorrhage versus pulmonary vascular malformation the left splenium.. [facility], , 05/25/2024 11:00 AM
[2024-05-25 11:23] LABS: Appearance,Urine Clear (Clear); Bilirubin,Urine Negative (Negative); Blood,Urine Trace (Negative); Color,Urine Colorless; Glucose,Urine (UA) Negative (Negative); Ketones,Urine Negative (Negative); Leukocyte Esterase,Urine Negative (Negative); Mucus,Urine Rare /hpf; Nitrite,Urine Negative (Negative); PH, Urine 6.5 (5.0-8.0); Protein,Urine Negative (Negative); RBC,Urine 4 /hpf (0-5); Specific Gravity,Urine 1.013 (1.001-1.035); Urobilinogen,Urine <2.0 mg/dL (<2.0); WBC,Urine 1 /hpf (0-5)
[2024-05-25 11:40] LABS: Amphetamine Screen,Urine Not Detected (NotDetected); Barbiturate Screen,Urine Not Detected (NotDetected); Benzodiazepines Screen,Urine Detected (NotDetected); Cocaine Screen,Urine Not Detected (NotDetected); Methadone Screen, Urine Not Detected (NotDetected); Opiate Screen,Urine Not Detected (NotDetected); Oxycodone Screen, Urine Not Detected (NotDetected); Phencyclidine Screen,Urine Not Detected (NotDetected); Tricyclic Antidepressant,Urine Not Detected (NotDetected); Urn Cannabinoid Scrn Not Detected (NotDetected)
[2024-05-25 13:22] LABS: Glucose,Whole Blood 119 mg/dL (70-110)
--- NOTE | 2024-05-25 15:05 | P.PN ---
Subjective Progress Note Date: 05/25/24 Patient was seen for a follow-up. Patient states that she is feeling better. She feels generalized weak. Her myoclonic jerks have remarkably improved. No new concerns. Objective - Vital Signs Vital signs: Vital Signs Temp 98.3 F 05/24/24 09:00 Pulse 84 05/25/24 11:00 Resp 16 05/25/24 11:00 BP 158/94 05/25/24 11:00 Pulse Ox 95 05/24/24 14:16 FiO2 Intake & Output 05/24/24 05/25/24 05/25/24 18:59 06:59 18:59 Weight 78.471 kg 78.471 kg - Exam Patient's mental status, speech and language functions are normal. She is slightly slow to answer. Patient has mild myoclonic jerks noted of outstretched hands. Rest of the examination is unchanged. - Labs CBC & Chem 7: 05/24/24 09:43 05/24/24 09:43 Labs: Abnormal Lab Results - Last 24 Hours (Table) 05/24/24 05/24/24 05/24/24 Range/Units 09:43 13:52 17:57 POC Glucose (mg/dL) 130 H 119 H (70-110) mg/dL Hemoglobin A1c 6.4 H (<=6.0) % Urine Blood (Negative) Urine Mucus (None) /hpf U Benzodiazepines Scrn (NotDetected) 05/25/24 Range/Units 11:03 POC Glucose (mg/dL) (70-110) mg/dL Hemoglobin A1c (<=6.0) % Urine Blood Trace H (Negative) Urine Mucus Rare H (None) /hpf U Benzodiazepines Scrn Detected H (NotDetected) Assessment and Plan Assessment: * Myoclonic jerks, unclear cause. Metabolic myoclonic jerks were suspected, but no obvious metabolic cause identified. Patient has abnormal MRI, with evidence of old hemosiderin in the right basal ganglia. These myoclonic jerks could be subcortical in origin. * Patient had recent transient episodes of similar myoclonic jerks 4 months ago and then 10 days ago, each of them lasted for couple hours and then resolved. However the current episode of these myoclonic jerks started load checker at 3 AM on waking up on the day of admission, and persisted even while in the ER. These are arrhythmic, nonsynchronous, involves facial region, as well as upper and lower extremities, and does not appear epileptic seizures. Patient's examination is nonfocal. * Leukocytosis, unclear cause. UTI ruled out.. * Hypertension, uncontrolled. Uncertain if some component of hypertensive encephalopathy. * Diabetes * Chronic back pain * Anemia Plan: * Patient underwent metabolic workup, which all came back negative, as mentioned below. * B12 568, folate 26.70, TSH 1.26, ammonia < 9, hemoglobin A1c 6.4, consistent with borderline diabetes. * UA and UDS negative. * EEG 05/24/2024 was normal awake and drowsy EEG. No focal, lateralized or epileptiform activity was seen. Myoclonic jerks were occurring during the study, which were only associated with muscle artifact, predominantly in the temporal region. No epileptiform activity was seen. No electrographic seizure was seen. Patient received Ativan 1 mg during the EEG, and these myoclonic jerks did improve significantly afterwards. * Continue Keppra 750 mg twice daily. Switch to oral route. * MRI of the brain with and without contrast revealed no evidence of intracranial mass, acute/subacute infarct or abnormal enhancement. Nonspecific white matter changes, likely related to small vessel ischemic disease. Hemosiderin deposition right basal ganglia and left splenium of the corpus callosum, likely sequela of prior hemorrhage versus AVM. * Suspect these myoclonic jerks could be subcortical in origin from remote hemorrhage. * Optimize control of blood pressure to normotensive levels, as it has been running quite high. Most recent blood pressure 164/77. * Observe for 1 more night. * Discussed with primary physician in detail. * Patient follows up with neurologist, Dr. Cresop for chronic back pain, and she will follow-up with Dr. Robins for these myoclonic jerks as well.
[2024-05-25 17:36] LABS: Glucose,Whole Blood 117 mg/dL (70-110)
[2024-05-25] MEDS ORDERED: LORazepam 1 MG/0.5 ML VIAL IV PRN (18:29)
[2024-05-25 20:25] LABS: Glucose,Whole Blood 137 mg/dL (70-110)
[2024-05-25] MEDS: METOPROLOL TARTRATE 25 MG TAB PO SCH (21:00)
--- NOTE | 2024-05-26 00:14 | P.PN ---
Progress Note - Text Progress Note Date: 05/25/24 Chief Complaint: Tremor, jerks Pleasant 69-year-old patient who follows with Dr. Banks. Chronic medical conditions include diet-controlled diabetes, essential hypertension. Patient does live with her son. Who is present at the bedside. His girlfriend is also present. Patient for 2 months has been episodes where her body starts shaking. Sometimes 1 side more than the other. He does include her legs or arms, head. He seems to be more prominent when patient lying down. Specially at night. These episodes are better when she is actually ambulating. Patient is able to get and walk around normally otherwise. Recently the symptoms have been getting worse. No prior history of seizures. No prior history of head injury. Denies use of any recreational drugs. No infective symptoms. May 25: Patient seen this morning. Tremors better. On Keppra. Switched over to p.o. Keppra. EEG negative for seizure activity. MRI results reviewed with Dr. Medellin. Later MRI formal results came in showing hemosiderin deposit in the right basal ganglia. In the left splenium of the corpus callosum. Could be from prior hemorrhage. Patient does follow with Dr. Robins from neurology. For better blood pressure control patient's beta-chrissy dosing adjusted. Diagnosis myoclonic jerks per neurology. Active Medications Acetaminophen (Acetaminophen Tab 325 Mg Tab) 650 mg PO Q6HR PRN PRN Reason: Mild Pain or Fever > 100.5 Calcium Carbonate/Glycine (Calcium Carbonate 500 Mg Chewable) 1,000 mg PO Q4HR PRN PRN Reason: Dyspepsia Cholecalciferol (Cholecalciferol 25 Mcg (1000 Iu) Tablet) 50 mcg PO DAILY [facility] Last Admin: 05/25/24 10:37 Dose: 50 mcg Dextrose/Water (Dextrose 50% Syringe 50 Ml) 25 ml IVP PER PROTOCOL PRN; Protocol PRN Reason: Hypoglycemia Dextrose/Water (Dextrose 50% Syringe 50 Ml) 50 ml IVP PER PROTOCOL PRN; Protocol PRN Reason: Hypoglycemia Enoxaparin Sodium (Enoxaparin 40 Mg/0.4 Ml Syringe) 40 mg SQ DAILY [facility] Last Admin: 05/25/24 10:44 Dose: Not Given Insulin Human Lispro (Insulin Lispro (Humalog) 100 Unit/Ml 10 Ml Vl) 0 unit SQ AC-TID [facility]; Protocol Last Admin: 05/25/24 17:42 Dose: Not Given Lactulose (Lactulose 20 Gm/30 Ml Cup) 20 gm PO DAILY PRN PRN Reason: Constipation Levetiracetam (Levetiracetam Iv 500 Mg/5 Ml Vial) 750 mg IVP Q12HR [facility] Last Admin: 05/25/24 21:00 Dose: 750 mg Lorazepam (Lorazepam 1 Mg/0.5 Ml Vial) 1 mg IV Q4HR PRN PRN Reason: Seizures Losartan Potassium (Losartan 50 Mg Tab) 100 mg PO HS [facility] Last Admin: 05/25/24 21:00 Dose: Not Given Melatonin (Melatonin 3 Mg Tablet) 3 mg PO HS PRN PRN Reason: Insomnia Metoprolol Succinate (Metoprolol Succinate (Er) 50 Mg Tab.Er.24h) 50 mg PO DAILY [facility] Multivitamins (Multivitamins, Thera 1 Each Tab) 1 each PO DAILY [facility] Last Admin: 05/25/24 10:37 Dose: 1 each Naloxone HCl (Naloxone 0.4 Mg/Ml 1 Ml Vial) 0.2 mg IV Q2M PRN PRN Reason: Opioid Reversal Ondansetron HCl (Ondansetron 4 Mg/2 Ml Vial) 4 mg IVP Q8HR PRN PRN Reason: Nausea And Vomiting Last Admin: 05/25/24 22:36 Dose: 4 mg Social history: Does not smoke or drink alcohol. Son lives with her. Physical examination: VITAL SIGNS: Afebrile, 84, 16, 158 x 94, 98% room air GENERAL: BMI 32.7, comfortable EYES: Pupils equal. Conjunctiva arjun l. HEENT: External appearance of nose and ears normal, oral cavity grossly normal. NECK: JVD not raised; masses not palpable. HEART: First and second heart sounds are normal; no edema. LUNGS: Respiratory rate normal; clear to auscultation. ABDOMEN: Soft, nontender, liver spleen not palpable, no masses palpable. PSYCH: Alert and oriented x3; mood and affect a bit anxious l. MUSCULOSKELETAL:No Clubbing/cyanosis;muscles-grossly intact NEUROLOGICAL: Cranial nerves grossly intact; no facial asymmetry, power and sensation grossly intact. Decreased jerking movements INVESTIGATIONS, reviewed in the clinical context: MRI of the brain with and without contrast: Hemosiderin deposition right basal ganglia and left splenium of the corpus callosum. From previous bleed. EEG: Negative for epileptiform activity May 24, 2024: White count 12.1 hemoglobin 10.3 platelets 232 sodium 140 potassium 4.3 BUN 19 creatinine 0.77 lactic acid 1.7 magnesium 1.5 AST 30 ALT 18 TSH 1.2 EKG tracing personally reviewed by me-myrna baseline. Normal sinus rhythm. Possible LVH. CT scan brain without contrast: Ventricle dilatation proportion to cerebral atrophy. Scattered hypoattenuating areas seen within the white matter. Assessment plan: -Patient presents about 2 months duration of progressively worsening symptoms. Includes jerking of the limbs. Asymmetrical. Acne involves the whole body. Seems to be worse at night and when patient is at rest. Actually gets better when patient is ambulating. Denies any head injury. No recreational drugs. No infective symptoms. Myoclonic jerks Neurology following EEG: Negative for epileptiform activity. MRI brain as above -Diet controlled diabetes mellitus type 2 Diabetic diet. Follow Accu-Cheks with sliding scale -Essential hypertension, uncontrolled Cozaar. Toprol-XL. Increase to 50 mg daily Increased dose of Toprol-XL. Change Keppra to p.o. Past Medical History Past Medical History: Diabetes Mellitus, Hypertension Additional Past Medical History / Comment(s): pre diabetic History of Any Multi-Drug Resistant Organisms: None Reported Past Surgical History: Hysterectomy Past Anesthesia/Blood Transfusion Reactions: No Reported Reaction Past Psychological History: No Psychological Hx Reported Smoking Status: Never smoker Past Alcohol Use History: None Reported Past Drug Use History: None Reported
[2024-05-26 07:31] LABS: Glucose,Whole Blood 99 mg/dL (70-110)
[2024-05-26] MEDS: METOPROLOL SUCCINATE (ER) 50 MG TAB.ER.24H PO SCH (08:32)
[2024-05-26 12:38] LABS: Glucose,Whole Blood 71 mg/dL (70-110)
[2024-05-26 17:29] LABS: Glucose,Whole Blood 122 mg/dL (70-110)
--- NOTE | 2024-05-26 17:31 | P.PN ---
Progress Note - Text Progress Note Date: 05/26/24 Chief Complaint: Tremor, jerks Pleasant 69-year-old patient who follows with Dr. Banks. Chronic medical conditions include diet-controlled diabetes, essential hypertension. Patient does live with her son. Who is present at the bedside. His girlfriend is also present. Patient for 2 months has been episodes where her body starts shaking. Sometimes 1 side more than the other. He does include her legs or arms, head. He seems to be more prominent when patient lying down. Specially at night. These episodes are better when she is actually ambulating. Patient is able to get and walk around normally otherwise. Recently the symptoms have been getting worse. No prior history of seizures. No prior history of head injury. Denies use of any recreational drugs. No infective symptoms. May 25: Patient seen this morning. Tremors better. On Keppra. Switched over to p.o. Keppra. EEG negative for seizure activity. MRI results reviewed with Dr. Medellin. Later MRI formal results came in showing hemosiderin deposit in the right basal ganglia. In the left splenium of the corpus callosum. Could be from prior hemorrhage. Patient does follow with Dr. Robins from neurology. For better blood pressure control patient's beta-chrissy dosing adjusted. Diagnosis myoclonic jerks per neurology. May 26: Patient myoclonic jerks are much better. Though she is slightly unsteady on her feet. Care has been ordered. She does follow with Dr. Cary live neurology. Earlier today Dr.'s Lee spoke to the patient and the son. Plan was to discharge home on 5 mg of Keppra twice daily. It was then decided to watch the patient overnight. Dr. Medellin's colleague Dr. Villatoro neurology will further evaluate tomorrow and finalize discharge. Prescription for 5 mg twice daily of Keppra has been sent to the pharmacy.. Blood pressure better. Active Medications Acetaminophen (Acetaminophen Tab 325 Mg Tab) 650 mg PO Q6HR PRN PRN Reason: Mild Pain or Fever > 100.5 Calcium Carbonate/Glycine (Calcium Carbonate 500 Mg Chewable) 1,000 mg PO Q4HR PRN PRN Reason: Dyspepsia Cholecalciferol (Cholecalciferol 25 Mcg (1000 Iu) Tablet) 50 mcg PO DAILY [facility] Last Admin: 05/26/24 08:32 Dose: 50 mcg Dextrose/Water (Dextrose 50% Syringe 50 Ml) 25 ml IVP PER PROTOCOL PRN; Protocol PRN Reason: Hypoglycemia Dextrose/Water (Dextrose 50% Syringe 50 Ml) 50 ml IVP PER PROTOCOL PRN; Protocol PRN Reason: Hypoglycemia Enoxaparin Sodium (Enoxaparin 40 Mg/0.4 Ml Syringe) 40 mg SQ DAILY [facility] Last Admin: 05/26/24 09:32 Dose: Not Given Insulin Human Lispro (Insulin Lispro (Humalog) 100 Unit/Ml 10 Ml Vl) 0 unit SQ AC-TID [facility]; Protocol Last Admin: 05/26/24 12:33 Dose: Not Given Lactulose (Lactulose 20 Gm/30 Ml Cup) 20 gm PO DAILY PRN PRN Reason: Constipation Levetiracetam (Levetiracetam 500 Mg Tab) 500 mg PO Q12HR [facility] Losartan Potassium (Losartan 50 Mg Tab) 100 mg PO HS [facility] Last Admin: 05/25/24 21:00 Dose: Not Given Melatonin (Melatonin 3 Mg Tablet) 3 mg PO HS PRN PRN Reason: Insomnia Metoprolol Succinate (Metoprolol Succinate (Er) 50 Mg Tab.Er.24h) 50 mg PO DAILY [facility] Last Admin: 05/26/24 08:32 Dose: 50 mg Multivitamins (Multivitamins, Thera 1 Each Tab) 1 each PO DAILY [facility] Last Admin: 05/26/24 08:32 Dose: 1 each Naloxone HCl (Naloxone 0.4 Mg/Ml 1 Ml Vial) 0.2 mg IV Q2M PRN PRN Reason: Opioid Reversal Ondansetron HCl (Ondansetron 4 Mg/2 Ml Vial) 4 mg IVP Q8HR PRN PRN Reason: Nausea And Vomiting Last Admin: 05/25/24 22:36 Dose: 4 mg Social history: Does not smoke or drink alcohol. Son lives with her. Physical examination: VITAL SIGNS: 98.4, 65, 16, 149 x 78, 95% room GENERAL: BMI 32.7, comfortable EYES: Pupils equal. Conjunctiva arjun l. HEENT: External appearance of nose and ears normal, oral cavity grossly normal. NECK: JVD not raised; masses not palpable. HEART: First and second heart sounds are normal; no edema. LUNGS: Respiratory rate normal; clear to auscultation. ABDOMEN: Soft, nontender, liver spleen not palpable, no masses palpable. PSYCH: Alert and oriented x3; mood and affect a bit anxious l. MUSCULOSKELETAL:No Clubbing/cyanosis;muscles-grossly intact NEUROLOGICAL: Cranial nerves grossly intact; no facial asymmetry, power and sensation grossly intact. Decreased jerking movements INVESTIGATIONS, reviewed in the clinical context: MRI of the brain with and without contrast: Hemosiderin deposition right basal ganglia and left splenium of the corpus callosum. From previous bleed. EEG: Negative for epileptiform activity May 24, 2024: White count 12.1 hemoglobin 10.3 platelets 232 sodium 140 potassium 4.3 BUN 19 creatinine 0.77 lactic acid 1.7 magnesium 1.5 AST 30 ALT 18 TSH 1.2 EKG tracing personally reviewed by me-poor baseline. Normal sinus rhythm. Possible LVH. CT scan brain without contrast: Ventricle dilatation proportion to cerebral atrophy. Scattered hypoattenuating areas seen within the white matter. Assessment plan: -Patient presents about 2 months duration of progressively worsening symptoms. Includes jerking of the limbs. Asymmetrical. Acne involves the whole body. Seems to be worse at night and when patient is at rest. Actually gets better when patient is ambulating. Denies any head injury. No recreational drugs. No infective symptoms. Myoclonic jerks Neurology following EEG: Negative for epileptiform activity. MRI brain as above Keppra 750 mg twice daily was started. Due to possible unsteady gait dose to be cut back to 500 twice daily per neurology. Patient to be evaluated overnight. Patient to follow-up with a neurologist and samples outpatient -Diet controlled diabetes mellitus type 2 Diabetic diet. Follow Accu-Cheks with sliding scale -Essential hypertension, better controlled Cozaar. Toprol-XL. 50 mg daily Cut back Keppra to 500 twice daily. Cane ordered. Follow with Dr. Cary Robins outpatient. Possible DC tomorrow after evaluated by neurology Past Medical History Past Medical History: Diabetes Mellitus, Hypertension Additional Past Medical History / Comment(s): pre diabetic History of Any Multi-Drug Resistant Organisms: None Reported Past Surgical History: Hysterectomy Past Anesthesia/Blood Transfusion Reactions: No Reported Reaction Past Psychological History: No Psychological Hx Reported Smoking Status: Never smoker Past Alcohol Use History: None Reported Past Drug Use History: None Reported
[2024-05-26 20:26] LABS: Glucose,Whole Blood 122 mg/dL (70-110)
[2024-05-26] MEDS ORDERED: levETIRAcetam IV 500 MG/5 ML VIAL IVP SCH (21:00)
[2024-05-26] MEDS: levETIRAcetam 500 MG TAB PO SCH (21:07)
[2024-05-27 07:29] LABS: Glucose,Whole Blood 122 mg/dL (70-110)
[2024-05-27 07:57] VITALS: BP 127/69; PULSE 71; RESP 15; TEMP 98
--- NOTE | 2024-05-27 09:39 | P.PN ---
Subjective Progress Note Date: 05/26/24 Patient was seen for a follow-up. Patient's son was also present by the bedside. The myoclonic jerks have resolved, but patient feels woozy, slightly unsteady on the feet. Likely from side effect of Keppra. We will decrease Keppra to 500 mg twice a day. Patient currently on Keppra 750 mg twice a day. Patient states that she had some myoclonic jerks last night when she was sleeping and woke up with it. At least at this time there is no myoclonic jerks noted. Objective - Vital Signs Vital signs: Vital Signs Temp 98.4 F 05/26/24 13:44 Pulse 65 05/26/24 13:44 Resp 16 05/26/24 13:44 BP 149/78 05/26/24 13:44 Pulse Ox 95 05/26/24 13:44 FiO2 Intake & Output 05/25/24 05/26/24 05/26/24 18:59 06:59 18:59 Intake Total 540 Balance 540 Weight 82 kg Intake: Oral 540 Other: Voiding Method Toilet Toilet # Voids 1 3 - Exam Patient's mental status, speech and language functions are normal. She is slightly slow to answer. Patient has none myoclonic jerks noted of outstretched hands. Rest of the examination is unchanged. I had patient walk. She was able to stand by herself. She walks somewhat slow, slightly unsteady. She was walking without any assistive device, although a walker and cane has been prescribed at this point. Prior to arrival, she did not use any assistive device. - Labs CBC & Chem 7: 05/24/24 09:43 05/24/24 09:43 Labs: Abnormal Lab Results - Last 24 Hours (Table) 05/25/24 05/25/24 Range/Units 17:33 20:15 POC Glucose (mg/dL) 117 H 137 H (70-110) mg/dL Assessment and Plan Assessment: * Myoclonic jerks, unclear cause. Metabolic myoclonic jerks were suspected, but no obvious metabolic cause identified. Patient has abnormal MRI, with evidence of old hemosiderin in the right basal ganglia. These myoclonic jerks could be subcortical in origin. * Patient had recent transient episodes of similar myoclonic jerks 4 months ago and then 10 days ago, each of them lasted for couple hours and then resolved. 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 These are arrhythmic, nonsynchronous, involves facial region, as well as upper and lower extremities, and does not appear epileptic seizures. Patient's examination is nonfocal. * Gait imbalance, likely due to side effect of Keppra. * Leukocytosis, unclear cause. UTI ruled out.. * Hypertension, uncontrolled. Uncertain if some component of hypertensive encephalopathy. * Diabetes * Chronic back pain * Anemia Plan: * Patient underwent metabolic workup, which all came back negative, as mentioned below. * B12 568, folate 26.70, TSH 1.26, ammonia < 9, hemoglobin A1c 6.4, consistent with borderline diabetes. * UA and UDS negative. * EEG 05/24/2024 was normal awake and drowsy EEG. No focal, lateralized or epileptiform activity was seen. Myoclonic jerks were occurring during the study, which were only associated with muscle artifact, predominantly in the temporal region. No epileptiform activity was seen. No electrographic seizure was seen. Patient received Ativan 1 mg during the EEG, and these myoclonic jerks did improve significantly afterwards. * Patient is experiencing probable side effect of Keppra. We will decrease it to 500 mg twice a day. * MRI of the brain with and without contrast revealed no evidence of intracranial mass, acute/subacute infarct or abnormal enhancement. Nonspecific white matter changes, likely related to small vessel ischemic dise ase. Hemosiderin deposition right basal ganglia and left splenium of the corpus callosum, likely sequela of prior hemorrhage versus AVM. * Suspect these myoclonic jerks could be subcortical in origin from remote hemorrhage. * Optimize control of blood pressure to normotensive levels, as it has been r unning quite high. Most recent blood pressure 149/78. * Patient is neurologically clear for discharge, but family wants to stay overnight because the medication dose has been changed and they want to make sure she is stable with this new dosing. * Discussed with primary physician in detail. * Patient follows up with neurologist, Dr. Crespo for chronic back pain, and she will follow-up with Dr. Robins for these myoclonic jerks as well.
[2024-05-27] MEDS: LACTULOSE 20 GM/30 ML CUP PO PRN (11:31)
[2024-05-27 12:53] LABS: Glucose,Whole Blood 101 mg/dL (70-110)
--- NOTE | 2024-05-27 20:06 | DS ---
DISCHARGE SUMMARY FINAL DIAGNOSES: 1. Seizures and myoclonic jerks. 2. Diabetes mellitus, type 2. 3. Hypertension. DISCHARGE DISPOSITION: The patient will be discharged in stable condition and guarded prognosis. HISTORY OF PRESENT ILLNESS: This 69-year-old woman was admitted with myoclonic jerks, seen by Neurology, controlled with medications. The patient is keen on going home. The patient will be discharged in a stable condition and guarded prognosis with vitals stable. No neuro deficit. DISCHARGE MEDICATIONS: 1. Metoprolol 50 mg p.o. daily. 2. Keppra 500 mg p.o. b.i.d. 3. Resume home medications, rest of medications. Follow up with Dr. Banks in 1 to 2 days. Follow up with Dr. Lita Crespo, neurologist, in 1 week. MMNEVINL / PAMELAN: [id number] /
== END 2024-05-27 14:37 | disposition home or self-care (01) | DRG 93 ==
LOC: EC 08:47 → 3SCARD 11:05 → 4SSUR 05-25 12:45 → 5NMEDONC 05-25 15:36
PROVIDERS: ADMIT Hospitalist; ATTEND Hospitalist
DX: G25.3 Myoclonus (principal); R56.9 Unspecified convulsions; G93.89 Other specified disorders of brain; E11.9 Type 2 diabetes mellitus without complications; D72.829 Elevated white blood cell count, unspecified; D64.9 Anemia, unspecified; I10 Essential (primary) hypertension; G89.29 Other chronic pain; M54.9 Dorsalgia, unspecified; Z88.2 Allergy status to sulfonamides; Z79.899 Other long term (current) drug therapy; Z90.710 Acquired absence of both cervix and uterus
CPT/HCPCS: 36415; 70450; 70553; 80053; 80306; 81001; 82140; 82607; 82746; 83036; 83605; 83735; 84443; 85025; 93005; 95816; 96361; 96372; 96374; 96375; 96376; 99285

== ENCOUNTER → 2024-07-03 | Outpatient (CLI) | payer MEDICARE | END | disposition home or self-care (01) | LOC: LABWHC1 08:22 | PROVIDERS: ATTEND Psychiatry & Neurology Neurology | DX: G25.3 Myoclonus (principal) | CPT/HCPCS: 36415; 80177 ==